=== PATIENT | female | born 1950 | race Caucasian/White ===

== ENCOUNTER 2016-08-07 21:57 | Emergency (ER) | payer OTHER, BC ==
[~2016-08-07] VITALS: Ht 165.1 cm; Wt 108.4 kg
[~2016-08-07 21:57] MED LIST: ACETCHW7 PO; ALBUAER2 INH; B-CO1CAP3 PO; BNC/20125 PO; DILT120C68 PO; GEMF600T3 PO; GLC/500 PO; GLIP2.5T11 PO; HMLI SC; INSDGI SC; LEVOPOW36; MAGN400T6 PO; MULT-506 PO; PRAV20TA PO; PRED1SUS3 OPL; [UNRECOGNIZED DRUG - CODE]
[2016-08-07 22:01] VITALS: TEMP 36.6; Ht 165.1 cm; Wt 108.4 kg
[2016-08-07 23:25] LABS: MANUAL MICROSCOPIC REQUIRED? YES; URINE APPEARANCE TURBID (CLEAR); URINE BILIRUBIN NEG (NEG); URINE COLOR RED; URINE NITRITE NEG (NEG); URINE SPECIFIC GRAVITY 1.025 (1.000-1.030); UROBILINOGEN NEG (NEG)
[2016-08-07 23:27] LABS: REVIEW REQ? NO
[2016-08-07 23:38] LABS: URINE BACTERIA NEG (NEG); URINE RBC >30 /hpf (0-4); URINE WBC >30 /hpf (0-5); ZZUR CULT IF INDIC CLEAN CATCH YES
[2016-08-07] MEDS ORDERED: METF-384 PO (23:55)
[2016-08-07] MEDS ORDERED: LEVO150T9 PO (23:55)
[2016-08-07] MEDS ORDERED: [UNRECOGNIZED DRUG - CODE] PO (23:55)
[2016-08-07] MEDS ORDERED: INSDGI SQ (23:55)
[2016-08-07] MEDS ORDERED: GLIP10TA10 PO (23:55)
[2016-08-07] MEDS ORDERED: DILT180C70 PO (23:57)
[2016-08-07] MEDS ORDERED: PRAV80TA2 PO (23:57)
[2016-08-07] MEDS ORDERED: NVLG SQ (23:58)
[2016-08-07] MEDS ORDERED: INSDGI SC (23:59)
[2016-08-08] MEDS ORDERED: PHENAZOPYRIDINE HOME PACK 200 MG VIAL PO ONE
[2016-08-08] MEDS ORDERED: CEFTRIAXONE SOD 350MG/ML 1 GM VIAL IM ONE
[2016-08-08] MEDS ORDERED: TURM500T PO (00:01)
[2016-08-08] MEDS ORDERED: CINN1CAP2 PO (00:01)
[2016-08-08] MEDS ORDERED: CHOL1000 PO (00:03)
[2016-08-08] MEDS ORDERED: CHRO1CAP3 PO (00:03)
[2016-08-08] MEDS ORDERED: GLUC1CAP35 PO (00:03)
[2016-08-08] MEDS ORDERED: GUAI1TAB69 PO (00:03)
[2016-08-08] MEDS ORDERED: CEFD300C2 PO (00:05)
[2016-08-08 00:11] VITALS: BP 147/104; PULSE 110; O2SAT 93
--- NOTE | 2016-08-10 11:32 | EMERGENCY ROOM VISIT NOTE ---
ED Visit Note First contact with patient: 22:40 CHIEF COMPLAINT: Frequent and painful urination HISTORY OF PRESENT ILLNESS: This 65-year-old female presents to the emergency department complaining of increased frequency of urination, burning pain with urination, and a feeling of incomplete voiding for the past 2 hours. She did notice blood in her urine. The patient passes very small volumes of urine with each episode of voiding. The patient does not have abdominal pain. They deny back pain, fever, or vaginal discharge. The patient has had frequent urinary tract infections in the past. Patient feels they are not at risk for STIs. REVIEW OF SYSTEMS: A 6 system review of systems was completed with positives and pertinent negatives listed in the HPI. ALLERGIES: See EMR MEDICATIONS: See EMR PMH: History of UTIs in past SOCIAL HISTORY: Lives locally PHYSICAL EXAM: Vital Signs: Reviewed Nurse's notes, vital signs stable. GENERAL : White female, in no acute distress, they do not appear toxic, well-developed , well-nourished. ABDOMEN: Positive bowel sounds x 4. The abdomen is soft, mildly tender in the suprapubic area, but no masses or organs are felt. There is no CVA tenderness. The skin is clear. NEURO: Alert and oriented to person place and time. EMERGENCY DEPARTMENT COURSE: I examined the patient. She does have UTI symptoms. Urine was collected and is with hematuria. The patient does not have symptoms that suggest a stone or pyelonephritis. Her culture is pending, however because she has had UTIs in the past I will give her a shot of Rocephin here and a course of Omnicef. The patient is to follow with her primary care physician for further care and management. She was otherwise invited back to the ER with any new, worsening, or concerning symptoms. Current/Historical Medications Scheduled B-Complex Vitamins (B Complex), 1 CAP PO DAILY Cefdinir (Omnicef), 300 MG PO Q12H Cholecalciferol (Vitamin D3), 1 TAB PO DAILY Chromium Picolinate (Chromium Picolinate), 500 MCG PO DAILY Cinnamon (Cinnamon), 500 MG PO DAILY Diltiazem Hcl (Diltiazem Hcl), 180 MG PO DAILY Gemfibrozil (Lopid), 600 MG PO BID Glipizide (Glipizide), 10 MG PO BID Hchsiuehzfj-Mantrwzyfqi-Uqa C- (Glucosamine Chondroitin), 1 CAP PO DAILY Insulin Aspart (Novolog), SQ ACHS Insulin Glargine (Lantus), 60 UNITS SQ QAM Insulin Glargine (Lantus), 40 SC QPM Levothyroxine Sodium (Levothyroxine Sodium), 150 MCG PO DAILY Magnesium Oxide (Mag-Ox), 400 MG PO DAILY Metformin Hcl (Glucophage), 1,000 MG PO BID Multivitamin (Multivitamin), 1 TAB PO DAILY Olmesartan/Hctz (Benicar Hct 40/12.5), 1 TAB PO DAILY Pravastatin Sodium (Pravastatin Sodium), 80 MG PO DAILY Turmeric (Curcuma Longa) (Turmeric), 500 MGPE PO DAILY Scheduled PRN Guaifenesin (Mucinex Maximum Strength), 1 TAB PO BID PRN for Nasal Congestion Allergies Coded Allergies: Sulfamethoxazole w/Trimethoprim (Verified Allergy, Intermediate, HIVES, 08/07/16) Ciprofloxacin (Verified Allergy, Unknown, RASH, 08/07/16) Penicillins (Verified Allergy, Unknown, UNSURE, 08/07/16) Vital Signs Date Time Temp Pulse Resp B/P Pulse Ox O2 Delivery O2 Flow Rate FiO2 08/08/16 00:11 110 20 147/104 93 Room Air 08/07/16 22:01 36.6 103 20 204/85 94 Room Air Laboratory Results Test 08/07/16 22:15 08/07/16 23:50 Urine Color RED Urine Appearance TURBID (CLEAR) Urine pH 6.0 (4.5-7.5) Urine Specific [place] 1.025 (1.000-1.030) Urine Protein 3+ (NEG) Urine Glucose (UA) TRACE (NEG) Urine Ketones NEG (NEG) Urine Occult Blood 3+ (NEG) Urine Nitrite NEG (NEG) Urine Bilirubin NEG (NEG) Urine Urobilinogen NEG (NEG) Urine Leukocyte Esterase NEG (NEG) Urine RBC >30 /hpf (0-4) Urine WBC >30 /hpf (0-5) Urine Epithelial Cells 0-5 /lpf (0-5) Urine Bacteria NEG (NEG) Bedside Glucose 291 mg/dl (70-90) Date/Time Source Procedure Growth Status 08/07/16 22:15 Urine , Clean Catch Urine Culture - Final Escherichia Coli Complete Medications Administered Medications (Trade) Dose Ordered Sig/Coretta Route Start Time Stop Time Status Last Admin Dose Admin Ceftriaxone Sodium (Rocephin Im) 1,000 mg NOW ONCE IM 08/08/16 00:00 08/08/16 00:01 DC 08/08/16 00:01 1,000 MG Departure Information Impression Primary Impression: Hemorrhagic cystitis Dispostion Home / Self-Care Condition GOOD Prescriptions Cefdinir (OMNICEF) 300 Mg Cap 300 MG PO Q12H for 10 Days, #20 CAP Prov: Paxton Yap PA-C 08/08/16 Forms HOME CARE DOCUMENTATION FORM, IMPORTANT VISIT INFORMATION Patient Instructions A Signature Page, My [facility] Additional Instructions You were seen and evaluated today on an emergency basis only. This is not a substitute for, or an effort to provide, complete comprehensive medical care. It is not possible to recognize and treat all injuries or illnesses in a single emergency department visit. For this reason it is recommended that you followup with your primary care physician's week for ongoing care and evaluation. Take Omnicef 300 mg twice daily for the next 10 days. Take Pyridium 200 mg 3 times a day as needed. This medication will change the color of your urine orange/red. This is normal. You are welcome to return to the emergency department anytime with new, worsening, or concerning symptoms.
== END 2016-08-08 00:23 | disposition home or self-care (01) ==
LOC: C.EDB 21:58 → C.EDA 08-08 00:23
DX: N30.90 Cystitis, unspecified without hematuria (principal); Z87.440 Personal history of urinary (tract) infections; Z79.4 Long term (current) use of insulin; Z79.84 Long term (current) use of oral hypoglycemic drugs; Z88.0 Allergy status to penicillin; Z88.2 Allergy status to sulfonamides

== ENCOUNTER → 2016-08-24 | Outpatient (CLI) | payer OTHER, BC ==
[~2016-08-24] MED LIST changes: -ACETCHW7 PO; -ALBUAER2 INH; -BNC/20125 PO; +CHOL1000 PO; +CHRO1CAP3 PO; +CINN1CAP2 PO; -DILT120C68 PO; +DILT180C70 PO; -GLC/500 PO; +GLIP10TA10 PO; -GLIP2.5T11 PO; +GLUC1CAP35 PO; +GUAI1TAB69 PO; -HMLI SC; +INSDGI SQ; +LEVO150T9 PO; -LEVOPOW36; +METF-384 PO; +NVLG SQ; -PRAV20TA PO; +PRAV80TA2 PO; -PRED1SUS3 OPL; +TURM500T PO; -[UNRECOGNIZED DRUG - CODE]; +[UNRECOGNIZED DRUG - CODE] PO
[2016-08-24 13:15] LABS: URINE APPEARANCE CLEAR (CLEAR); URINE BILIRUBIN NEG (NEG); URINE COLOR YELLOW; URINE NITRITE NEG (NEG); URINE SPECIFIC GRAVITY 1.023 (1.000-1.030); UROBILINOGEN NEG (NEG); ZZUR CULT IF INDIC CLEAN CATCH NO
[2016-08-24 13:23] LABS: MANUAL MICROSCOPIC REQUIRED? NO; REVIEW REQ? NO
== END | disposition home or self-care (01) ==
LOC: C.LABSPEC 10:56
PROVIDERS: ATTEND Internal Medicine
DX: N39.0 Urinary tract infection, site not specified (principal)

== ENCOUNTER → 2016-09-23 | Outpatient (CLI) | payer OTHER, BC ==
[2016-09-23 15:45] LABS: URINE APPEARANCE CLEAR (CLEAR); URINE BILIRUBIN NEG (NEG); URINE COLOR YELLOW; URINE NITRITE NEG (NEG); URINE SPECIFIC GRAVITY 1.025 (1.000-1.030); UROBILINOGEN NEG (NEG)
[2016-09-23 15:46] LABS: MANUAL MICROSCOPIC REQUIRED? NO; REVIEW REQ? NO
== END | disposition home or self-care (01) ==
LOC: C.LAB1850 14:29
PROVIDERS: ATTEND Internal Medicine
DX: N39.0 Urinary tract infection, site not specified (principal)

== ENCOUNTER → 2016-11-19 | Outpatient (CLI) | payer OTHER, BC | END | disposition home or self-care (01) | LOC: C.LABSPEC 17:37 | PROVIDERS: ATTEND Obstetrics & Gynecology | DX: L28.0 Lichen simplex chronicus (principal) ==

== ENCOUNTER → 2017-05-06 | Outpatient (CLI) | payer OTHER, BC ==
--- NOTE | 2017-05-06 15:48 | DIAGNOSTIC IMAGING REPORT ---
RIBS BILATERAL WITH PA CHEST CLINICAL HISTORY: 66 years-old Female presenting with RIB PAIN. TECHNIQUE: Frontal and oblique views of the bilateral ribs as well as PA view of the chest were obtained. COMPARISON: Chest x-ray from 05/15/2011. FINDINGS: No displaced rib fracture. Cardiac mediastinal silhouette unchanged. Lungs and pleural spaces clear. Upper abdomen normal. IMPRESSION: 1. No displaced rib fracture. 2. No acute cardiopulmonary disease. Electronically signed by: Cristian Nichols M.D. 05/06/2017 3:47 PM Dictated Date/Time: 05/06/2017 3:45 PM
--- NOTE | 2017-05-06 15:49 | DIAGNOSTIC IMAGING REPORT ---
THORACIC SPINE 3 VIEWS ROUTINE CLINICAL HISTORY: 66 years-old Female presenting with RIB PAIN. TECHNIQUE: 3 views of the thoracic spine were obtained. COMPARISON: None. FINDINGS: Normal thoracic kyphosis. Vertebral bodies maintain normal height and alignment. Intervertebral disc spaces maintained. Limited visualization of the upper thoracic vertebral bodies. Degenerative changes noted at C6-7. No gross evidence of osseous neural foraminal narrowing in the thoracic spine. No radiographic evidence of fracture or subluxation. IMPRESSION: Normal thoracic spine. Focal degenerative change at C6-7. Electronically signed by: Cristian Nichols M.D. 05/06/2017 3:48 PM Dictated Date/Time: 05/06/2017 3:47 PM
== END | disposition home or self-care (01) ==
LOC: C.RAD 14:32
PROVIDERS: ATTEND Internal Medicine
DX: C50.919 Malignant neoplasm of unspecified site of unspecified female breast (principal); R07.89 Other chest pain

== ENCOUNTER → 2017-08-12 | Outpatient (CLI) | payer OTHER, BC ==
[2017-08-12 09:35] LABS: BASO % 1.2 %; BASO ABS # 0.09 K/uL (0-0.2); EOS % 7.3 %; EOS ABS # 0.54 K/uL (0-0.5); HEMATOCRIT 41.2 % (37-47); HEMOGLOBIN 14.1 g/dL (12.0-16.0); IG# 0.02 K/uL (0.00-0.02); LYMPH % 21.1 %; LYMPH ABS # 1.56 K/uL (1.2-3.4); MEAN CELL VOLUME 85.7 fL (80-100); MEAN CORPUSCULAR HEMOGLOBIN 29.3 pg (25-34); MEAN CORPUSCULAR HGB CONC 34.2 g/dl (32-36); MEAN PLATELET VOLUME 10.2 fL (7.4-10.4); MONO % 6.6 %; MONO ABS # 0.49 K/uL (0.11-0.59); NEUT % 63.5 %; PLATELET COUNT 401 K/uL (130-400); RED CELL DISTRIBUTION WIDTH CV 13.6 % (11.5-14.5); RED CELL DISTRIBUTION WIDTH SD 42.4 fL (36.4-46.3)
[2017-08-12 10:04] LABS: HEMOGLOBIN A1C 9.7 % (4.5-5.6)
[2017-08-12 10:09] LABS: ALT/SGPT 46 U/L (12-78); AST/SGOT 20 U/L (15-37); BLOOD UREA NITROGEN 16 mg/dl (7-18); CALCIUM 9.5 mg/dl (8.5-10.1); CARBON DIOXIDE 28 mmol/L (21-32); CREATININE 0.69 mg/dl (0.60-1.20); GLUCOSE 197 mg/dl (70-99); POTASSIUM 3.4 mmol/L (3.5-5.1); SODIUM 135 mmol/L (136-145)
[2017-08-12 10:20] LABS: CHOLESTEROL 243 mg/dl (0-200)
== END | disposition home or self-care (01) ==
LOC: C.LAB1850 08:26
PROVIDERS: ATTEND Physician Assistant
DX: E11.9 Type 2 diabetes mellitus without complications (principal); I10 Essential (primary) hypertension; E03.9 Hypothyroidism, unspecified

== ENCOUNTER → 2017-09-29 | Outpatient (CLI) | payer OTHER, BC ==
--- NOTE | 2017-09-30 07:57 | MAMMOGRAPHY REPORT ---
BILATERAL DIGITAL SCREENING MAMMOGRAM TOMOSYNTHESIS WITH CAD: 09/29/2017 CLINICAL HISTORY: Asymptomatic. Personal history of breast cancer. TECHNIQUE: Breast tomosynthesis in addition to standard 2D mammography was performed. Current study was also evaluated with a Computer Aided Detection (CAD) system. COMPARISON: Comparison is made to exams dated: 12/22/2015 mammogram, 05/03/2014 mammogram, 10/01/2012 m ammogram, 06/10/2011 mammogram, 06/10/2011 mammogram - [facility], and 04/20/2009. BREAST COMPOSITION: There are scattered areas of fibroglandular density in both breasts. FINDINGS: There is expected architectural distortion and surgical clips in the upper outer quadrant o f the left breast and left axilla, at the site of prior surgery. There are scattered benign-appearin g calcifications stable in the left greater than right breast. No new suspicious mass, architectural distortion or cluster of suspicious microcalcifications is seen. IMPRESSION: ACR BI-RADS CATEGORY 1: NEGATIVE There is no mammographic evidence of malignancy. A 1 year screening mammogram is recommended. The pa tient will receive written notification of the results. Approximately 10% of breast cancers are not detected with mammography. A negative mammographic report should not delay biopsy if a clinically suggestive mass is present. Lizeth Krause M.D. ay/:09/29/2017 17:54:29 Watch Supervisor: Frances HUA)(Antonio), [facility] letter sent: Normal 1/2 BI-RADS Code: ACR BI-RADS Category 1: Negative
== END | disposition home or self-care (01) ==
LOC: C.MAMM 12:21
PROVIDERS: ATTEND Internal Medicine
DX: Z12.31 Encounter for screening mammogram for malignant neoplasm of breast (principal); Z85.3 Personal history of malignant neoplasm of breast

== ENCOUNTER → 2017-10-07 | Outpatient (CLI) | payer OTHER, BC | END | disposition home or self-care (01) | LOC: C.LAB1850 11:26 | PROVIDERS: ATTEND Internal Medicine | DX: N39.0 Urinary tract infection, site not specified (principal) ==

== ENCOUNTER → 2017-11-18 | Outpatient (CLI) | payer OTHER, BC ==
[2017-11-18 14:36] LABS: BASO % 0.6 %; BASO ABS # 0.05 K/uL (0-0.2); EOS % 3.9 %; EOS ABS # 0.33 K/uL (0-0.5); HEMATOCRIT 41.1 % (37-47); HEMOGLOBIN 14.1 g/dL (12.0-16.0); IG# 0.02 K/uL (0.00-0.02); LYMPH % 18.1 %; LYMPH ABS # 1.53 K/uL (1.2-3.4); MEAN CELL VOLUME 84.7 fL (80-100); MEAN CORPUSCULAR HEMOGLOBIN 29.1 pg (25-34); MEAN CORPUSCULAR HGB CONC 34.3 g/dl (32-36); MEAN PLATELET VOLUME 9.8 fL (7.4-10.4); MONO % 7.1 %; NEUT % 70.1 %; NEUT ABS # 5.94 K/uL (1.4-6.5); PLATELET COUNT 431 K/uL (130-400); RED CELL DISTRIBUTION WIDTH CV 13.6 % (11.5-14.5); RED CELL DISTRIBUTION WIDTH SD 41.7 fL (36.4-46.3); WHITE BLOOD COUNT 8.47 K/uL (4.8-10.8)
[2017-11-18 15:06] LABS: ALT/SGPT 51 U/L (12-78); AST/SGOT 25 U/L (15-37); BLOOD UREA NITROGEN 26 mg/dl (7-18); CALCIUM 9.3 mg/dl (8.5-10.1); CARBON DIOXIDE 26 mmol/L (21-32); GLUCOSE 209 mg/dl (70-99); POTASSIUM 3.5 mmol/L (3.5-5.1); SODIUM 136 mmol/L (136-145)
[2017-11-19 06:38] LABS: HEMOGLOBIN A1C 9.4 % (4.5-5.6)
== END | disposition home or self-care (01) ==
LOC: C.LAB1850 12:02
PROVIDERS: ATTEND Internal Medicine
DX: E78.1 Pure hyperglyceridemia (principal)

== ENCOUNTER → 2018-02-24 | Outpatient (CLI) | payer OTHER, BC ==
[2018-02-25 06:09] LABS: HEMOGLOBIN A1C 8.8 % (4.5-5.6)
== END | disposition home or self-care (01) ==
LOC: C.LAB1850 15:36
PROVIDERS: ATTEND Internal Medicine
DX: E11.9 Type 2 diabetes mellitus without complications (principal); E78.1 Pure hyperglyceridemia

== ENCOUNTER 2023-12-24 18:18 | Inpatient (IN) ==
--- NOTE | 2023-12-24 18:28 | ED Triage Note ---
Date of Service December 24, 2023 Provider in Triage Author: Paxton Yap A History of Present Illness This patient was briefly evaluated while in triage. An abbreviated physical exam was performed. This patient is a 73-year-old Female who presents to the ED for evaluation of low heart rate. Pt reports it was 40 at home, and she called here PCP but they were out of town. No CP/sob. Not dizzy. Physical Exam Limited Triage Exam: VITALS: Vitals are noted on the nurse's note and reviewed by myself. Vital signs stable. GENERAL: Well-developed, well-nourished, white female, who is in no acute distress and resting comfortably. Patient is cooperative with the examination. HEART: Paulo rate LUNGS: Clear to auscultation bilaterally without wheezes, rales or rhonchi. No retractions or accessory muscle use. NEURO: Patient was alert and oriented to person place and time. CN II through XII grossly intact. Initial orders for labs and / or imaging were placed and patient was placed in the waiting area until a bed is available. Please see further documentation for the full ED course. MDM / Impression Impression Impression: Third degree heart block
[2023-12-24 19:38] LABS: Basophils # (auto) 0.09 K/uL (0.00-0.20); Basophils % (auto) 0.8 %; Eosinophils # (auto) 0.27 K/uL (0.00-0.50); Eosinophils % (auto) 2.5 %; Hemoglobin 11.7 g/dl (12.0-16.0); Immature Granulocytes # (auto) 0.03 K/uL (0.01-0.20); Immature Granulocytes % (auto) 0.3 %; Lymphocytes # (auto) 1.18 K/uL (1.20-3.40); Lymphocytes % (auto) 10.9 %; Mean Corpuscular Hemoglobin 27.5 pg (25.0-34.0); Mean Corpuscular Hgb Conc 32.5 g/dL (32.0-36.0); Mean Corpuscular Volume 84.7 fL (80.0-100.0); Mean Platelet Volume 10.6 fL (9.4-12.4); Monocytes # (auto) 0.77 K/uL (0.11-0.59); Monocytes % (auto) 7.1 %; Neutrophils # (auto) 8.47 K/uL (1.40-6.50); Neutrophils % (auto) 78.4 %; Platelet Count 329 K/uL (130-400); RDW Coefficient of Variation 14.6 % (11.5-14.5); RDW Standard Deviation 44.7 fL (36.4-46.3); Red Blood Count 4.25 M/uL (4.20-5.40); White Blood Count 10.81 K/ul (4.8-10.8)
[2023-12-24 19:50] LABS: Albumin Globulin Ratio 1.1 (0.9-2); Albumin Level 3.6 gm/dl (3.4-5.0); BUN Creatinine Ratio 35.8 (10-20); Bilirubin,Total 0.3 mg/dl (0.2-1.0); Calcium 9.4 mg/dl (8.6-10.3); Est GFR (Non-African American) 34.5 ml/min; Globulin 3.2 gm/dl (2.5-4.0); Total Protein 6.8 gm/dl (6.0-8.3)
[2023-12-24 19:56] LABS: Troponin I High Sensitivity 6.6 pg/ml (0-14)
[2023-12-24 19:59] LABS: Partial Thromboplastin Time 26 Seconds (21-31); Prothrombin Time 10.8 Seconds (9.0-12.0)
--- NOTE | 2023-12-24 20:38 | History & Physical Report ---
Date of Service December 24, 2023 Assessment & Plan (1) Third degree heart block: Plan: 73yo female presenting with bradycardia, some SOB and palpitations. Found to be in complete heart block with HR in the 40's. Blood pressure is maintained. Patient is mentating well with minimal symptoms. No clinical evidence of CHF. She does have LUIS FELIPE, possible poor perfusion. Electrolytes are within normal limits. K=5 which is within normal range but higher than prior values. She is on Spironolactone and K supplement. TSH is WNL Lyme screen is Negative -Admit to medical with telemetry -Check 2D echo. Patient with 3/6 ERWIN, possibly aortic sclerosis. No prior echo -Cardiology consultation appreciated -Will keep patient NPO for overnight in the event of pacer placement -Hold Diltiazem -Should patient decompensate or become hypotensive will initiate Dopamine (2) Type 2 diabetes mellitus with hyperglycemia, with long-term current use of insulin: Plan: Patient with DM. She is on metformin as well as 95u of Lantus qAM. Poorly controlled with last NalY7D=14.6 on 09/23/23. Patient will be NPO for now for possible pacer placement tomorrow -Hold Metformin -Lantus 25u BID -ISS -Goal blood sugar 110 - 140 -Check HgbA1C (3) LUIS FELIPE (acute kidney injury): Plan: Elevation of BUN and Cr from baseline (Cr=1.48 from 0.99). Possibly secondary to poor perfusion in setting of CHB and bradycardia. Patient does appear slightly dry on exam. -LR at 100mL/hr x 1L -Repeat chemistry in AM -Avoid nephrotoxic agent - Hold HCTZ, Ibuprofen, Potassium and Spironolactone -Renal dosing where needed -Close outpatient laboratory mon[place]ong if patient is to continue on Spironolactone and KCl Plan Hypothyroidism - chronic. stable -Continue Synthroid 150mcg po daily Hyperlipidemia - Chronic. Stable -Continue Crestor 40mg po daily POA - Friend Elif Nichols [phone] History of Present Illness Chief Complaint: Bradycardia Primary Care Provider: Lorenza Nieves MD Tate Trejo is a pleasant 73yo female with history of DM, HTN, HLP, GERD, Hypothyroidism, CKD presenting with bradycardia and irregular heart beat. Patient routinely measures her vital signs at home with use of an automated blood pressure cuff. She records these values in her book. Around early October () she began getting some readings that indicated an irregular rhythm which were occasional. Over the last several days (since December 19) she has had fairly consistent irregular rhythms as well as bradycardia - heart rates ranging 40's - 50's. Patient is mildly symptomatic. She experiences occasional palpitations as well as shortness of breath and fatigue. She denies chest pain, dizziness or syncope . Denies edema, orthopnea or weight gain. No confusion. Patient was recently ill with a three week URI. She was taking Benadryl and Mucinex. She did not get any viral testing for this illness. She reports that her symptoms are largely resolved with exception of continued nasal congestion and some post-nasal drip. She takes Fluconazole PRN for yeast infections and took a tablet yesterday. She denies exposure to ticks or tick bites. In the ER she was found to be in complete heart block. Allergies Allergy/AdvReac Type Severity Reaction Status Date / Time ciprofloxacin Allergy Intermediate RASH Verified 12/24/23 20:55 sulfamethoxazole Allergy Intermediate HIVES Verified 12/24/23 20:55 trimethoprim Allergy Intermediate HIVES Verified 12/24/23 20:55 feathers Allergy Mild Sneezing Verified 12/24/23 20:55 amlodipine Allergy Unknown CAN'T Verified 12/24/23 20:55 REMEMBER atorvastatin [From Lipitor] Allergy Unknown CAN'T Verified 12/24/23 20:55 REMEMBER fenofibrate Allergy Unknown CAN'T Verified 12/24/23 20:55 REMEMBER losartan Allergy Unknown CAN'T Verified 12/24/23 20:55 REMEMBER Penicillins Allergy Unknown UNSURE Verified 12/24/23 20:55 Rabbit Allergy Unknown Unknown Verified 12/24/23 20:55 carisoprodol AdvReac Unknown CAN'T Verified 12/24/23 20:55 REMEMBER TOBACCO Allergy Unknown Unknown Uncoded 12/24/23 20:55 Home Medications Medication Instructions Recorded Confirmed Type cholecalciferol (vitamin D3) 25 1,000 units PO DAILY 09/10/18 12/24/23 History mcg (1,000 unit) capsule chromium picolinate 400 mcg tablet 500 mcg PO DAILY 09/10/18 12/24/23 History cinnamon bark 500 mg capsule 500 mg PO DAILY 09/10/18 12/24/23 History (Cinnamon) magnesium oxide 400 mg PO DAILY 09/10/18 12/24/23 History multivitamin 1 tab PO DAILY 09/10/18 12/24/23 History vitamin B complex 1 tab PO HS 09/10/18 12/24/23 History blood sugar diagnostic (OneTouch #300 ea 01/27/23 12/08/23 Rx Ultra Test strips) insulin syringe-needle U-100 0.5 #300 ea 01/30/23 12/08/23 Rx mL 30 gauge x 1/2" rosuvastatin 40 mg tablet 40 mg PO DAILY #90 tabs 03/13/23 12/24/23 Rx albuterol sulfate 90 mcg/actuation 2 puff inhalation Q4H PRN 07/15/23 12/24/23 Rx aerosol inhaler shortness of breath or wheezing #8.5 grams metformin 500 mg tablet,extended 500 mg PO BID #60 tabs 10/10/23 12/24/23 Rx release 24 hr hydrochlorothiazide 12.5 mg capsule 12.5 mg PO QAM 12/08/23 12/24/23 History spironolactone 25 mg tablet 25 mg PO DAILY #90 tabs 12/08/23 12/24/23 Rx acetaminophen 500 mg tablet 500 mg PO Q6H PRN PAIN/FEVER 12/24/23 12/24/23 History (Tylenol Extra Strength) ascorbic acid (vitamin C) 500 mg 500 mg PO DAILY 12/24/23 12/24/23 History tablet (Vitamin C) aspirin 81 mg tablet,delayed 81 mg PO HS 12/24/23 12/24/23 History release diltiazem HCl 240 mg 240 mg PO HS 12/24/23 12/24/23 History capsule,extended release 24 hr diphenhydramine HCl 25 mg capsule 25 mg PO DIRECTED PRN Congestion 12/24/23 12/24/23 History (Benadryl) fluconazole 100 mg tablet 0 mg PO DIRECTED PRN NEEDED 12/24/23 12/24/23 History PER PT glucosamine sulf dipot 1 cap PO DAILY 12/24/23 12/24/23 History chlr,msm,chond 550 mg-C 30 mg-prvaeen 1 mg capsule (Glucosamine Chondroitin) guaifenesin 600 mg tablet, 600 mg PO Q12H PRN Congestion 12/24/23 12/24/23 History extended release 12 hr (Mucinex) ibuprofen 200 mg tablet 400 mg PO Q6H PRN PAIN/FEVER 12/24/23 12/24/23 History insulin glargine 100 unit/mL 95 unit subcut QAM 12/24/23 12/24/23 History subcutaneous solution (Lantus U-100 Insulin) levothyroxine 150 mcg tablet 150 mcg PO DAILY #90 tabs 12/24/23 12/24/23 Rx omega-3 fatty acids 1,000 mg 1,000 mg PO DAILY 12/24/23 12/24/23 History capsule orphenadrine citrate 100 mg 100 mg PO BID PRN NEEDED 12/24/23 12/24/23 History tablet,extended release potassium chloride 20 mEq 20 meq PO HS 12/24/23 12/24/23 History tablet,extended release turmeric 400 mg capsule 400 mg PO DAILY 12/24/23 12/24/23 History Past Med/Surg History Problem List (Updated 12/24/23 @ 23:41 by Mima Li DO) LUIS FELIPE (acute kidney injury) Third degree heart block (Acute) Dysuria Bilateral carotid artery stenosis History of breast cancer 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 GFR 30-59 Type 2 diabetes mellitus with retinopathy Type 2 diabetes mellitus with obesity Fatigue Rotator cuff arthropathy of right shoulder Right shoulder pain CKD (chronic kidney disease) stage 3, GFR 30-59 ml/min Lumbar facet joint syndrome (Chronic) Insulin dependent diabetes mellitus (Chronic) Obesity (Chronic) Lichen simplex chronicus (Chronic) Polyneuropathy (Chronic) History of external beam radiation therapy (Chronic) Herpes simplex (Chronic) Chronic low back pain (Chronic) GERD (gastroesophageal reflux disease) (Chronic) Hypothyroid (Chronic) High cholesterol (Chronic) HTN (hypertension), benign (Chronic) Hemorrhagic cystitis (Acute) Type 2 diabetes mellitus with hyperglycemia, with long-term current use of insulin Medical History Breast cancer Surgical History Status post total abdominal hysterectomy Family History Mother HTN (hypertension), benign Stroke Uterine cancer Father Heart disease Aunt Breast cancer Denies family history of Ovarian cancer Prostate cancer Myocardial infarction Colorectal cancer Social History Smoking Status: Never smoker Do You Dip or Chew Tobacco: No; Hx Alcohol Use: No Hx Substance Use: No Preferred Language: Bulgarian Communication Ability: Effective Visual Impairment: No Limitations Hearing Ability: Normal Campground Cleaning Attendant Required: No Beliefs That Will Affect Care: None marital status: Single Current Living Situation: Alone current occupational status: retired current occupation: Retired bookeeper Feels Safe at Home: Yes Do you think of yourself as: straight/heterosexual Review of Systems Review of Systems: All systems reviewed & are unremarkable except as noted in HPI & below Physical Exam Physical Exam: General: patient resting comfortably, NAD, non-toxic in appearance, AA&O x 4 Skin: warm, dry, intact, no rashes or lesions HEENT: NC/AT, PERRL, EOMI, anicteric sclera, conjunctiva without injection, external ear normal to inspection and nontender, nares patent, moist mucus membranes, dentition intact, no oropharyngeal lesions, neck supple, trachea midline, no LAD, no thyromegaly, no JVD Heart: +S1/S2, irregularly irregular, bradycardic, 3/6 ERWIN at right 2nd ICS with radiation across precordium Lungs: equal air entry bilaterally, no rales/rhonchi/wheezes Abd: +BS, soft, NT/ND, no masses/organomegaly/ascites Ext: warm, 2+ pulses in UE/LE bilaterally, no clubbing/cyanosis or edema Neuro: nonfocal, patient AA&O x 4, speech intact, no facial droop, moving all extremities on command with equal strength 5/5 Results & Data Results & Data Vital Signs (Past 12 Hours) Vital Signs Temp Pulse Pulse Resp BP BP Pulse Ox 12/24/23 19:56 42 L 12/24/23 19:47 50 L 18 159/74 H 96 12/24/23 18:22 36.8 C 41 L 18 178/64 H 97 O2 Del Method 12/24/23 19:56 12/24/23 19:47 Room Air 12/24/23 18:22 Room Air Laboratory Results Laboratory Results WBC 10.81 K/ul (4.8-10.8) H 12/24/23 18:52 RBC 4.25 M/uL (4.20-5.40) 12/24/23 18:52 Hgb 11.7 g/dl (12.0-16.0) L 12/24/23 18:52 Hct 36.0 % (37.0-47.0) L 12/24/23 18:52 MCV 84.7 fL (80.0-100.0) 12/24/23 18:52 MCH 27.5 pg (25.0-34.0) 12/24/23 18:52 MCHC 32.5 g/dL (32.0-36.0) 12/24/23 18:52 RDW Std Deviation 44.7 fL (36.4-46.3) 12/24/23 18:52 RDW Coeff of Shavon 14.6 % (11.5-14.5) H 12/24/23 18:52 Plt Count 329 K/uL (130-400) 12/24/23 18:52 MPV 10.6 fL (9.4-12.4) 12/24/23 18:52 Immature Gran % (Auto) 0.3 % 12/24/23 18:52 Neut % (Auto) 78.4 % 12/24/23 18:52 Lymph % (Auto) 10.9 % 12/24/23 18:52 [place] % (Auto) 7.1 % 12/24/23 18:52 Eos % (Auto) 2.5 % 12/24/23 18:52 Baso % (Auto) 0.8 % 12/24/23 18:52 Neut # (Auto) 8.47 K/uL (1.40-6.50) H 12/24/23 18:52 Lymph # (Auto) 1.18 K/uL (1.20-3.40) L 12/24/23 18:52 [place] # (Auto) 0.77 K/uL (0.11-0.59) H 12/24/23 18:52 Eos # (Auto) 0.27 K/uL (0.00-0.50) 12/24/23 18:52 Baso # (Auto) 0.09 K/uL (0.00-0.20) 12/24/23 18:52 Immature Gran # (Auto) 0.03 K/uL (0.01-0.20) 12/24/23 18:52 PT 10.8 Seconds (9.0-12.0) 12/24/23 18:52 INR 1.0 (0.9-1.1) 12/24/23 18:52 APTT 26 Seconds (21-31) 12/24/23 18:52 PTT Ratio 1.0 12/24/23 18:52 Sodium 133 mmol/L (136-145) L 12/24/23 18:52 Potassium 5.0 mmol/L (3.5-5.1) 12/24/23 18:52 Chloride 105 mmol/L (98-107) 12/24/23 18:52 Carbon Dioxide 19 mmol/L (21-32) L 12/24/23 18:52 Anion Gap 9 (3-11) 12/24/23 18:52 BUN 53 mg/dl (6-23) H 12/24/23 18:52 Creatinine 1.48 mg/dl (0.6-1.2) H 12/24/23 18:52 Est Cr Clr Drug Dosing 39.0 ml/min 12/24/23 18:52 Est GFR ( Amer) 40.0 ml/min 12/24/23 18:52 Est GFR (Non-Af Amer) 34.5 ml/min 12/24/23 18:52 BUN/Creatinine Ratio 35.8 (10-20) H 12/24/23 18:52 Glucose 184 mg/dl (70-99(Fasting)) H 12/24/23 18:52 Calcium 9.4 mg/dl (8.6-10.3) 12/24/23 18:52 Phosphorus 4.5 mg/dl (2.5-4.9) 12/24/23 18:52 Magnesium 2.5 mg/dl (1.7-2.4) H 12/24/23 18:52 Total Bilirubin 0.3 mg/dl (0.2-1.0) 12/24/23 18:52 AST 13 U/L (13-39) 12/24/23 18:52 ALT 14 U/L (7-52) 12/24/23 18:52 Alkaline Phosphatase 66 U/L (34-104) 12/24/23 18:52 Troponin I High Sens 6.6 pg/ml (0-14) 12/24/23 18:52 Total Protein 6.8 gm/dl (6.0-8.3) 12/24/23 18:52 Albumin 3.6 gm/dl (3.4-5.0) 12/24/23 18:52 Globulin 3.2 gm/dl (2.5-4.0) 12/24/23 18:52 Albumin/Globulin Ratio 1.1 (0.9-2) 12/24/23 18:52 Lipase 17 U/L (11-82) 12/24/23 18:52 TSH 1.370 uIu/ml (0.300-4.500) 12/24/23 18:52 Urine Color Yellow 12/24/23 20:35 Urine Appearance Clear (Clear) 12/24/23 20:35 Urine pH 5.5 (4.5-7.5) 12/24/23 20:35 Ur Specific [place] 1.018 (1.000-1.030) 12/24/23 20:35 Urine Protein 3+ (Negative) H 12/24/23 20:35 Urine Glucose (UA) Negative (Negative) 12/24/23 20:35 Urine Ketones Negative (Negative) 12/24/23 20:35 Urine Blood Trace (Negative) H 12/24/23 20:35 Urine Nitrite Negative (Negative) 12/24/23 20:35 Urine Bilirubin Negative (Negative) 12/24/23 20:35 Urine Urobilinogen Negative (Negative) 12/24/23 20:35 Ur Leukocyte Esterase 1+ (Negative) H 12/24/23 20:35 Urine WBC (Auto) 21-50 /hpf (0-5) H 12/24/23 20:35 Urine RBC (Auto) 0-2 /hpf (0-2) 12/24/23 20:35 U Hyaline Cast (Auto) 6-10 /lpf (0-2) H 12/24/23 20:35 U Epithel Cells (Auto) 0-2 /hpf (0-2) 12/24/23 20:35 Urine Bacteria (Auto) None Seen (None Seen) 12/24/23 20:35 Lyme Disease Screen Negative (Negative) 12/24/23 18:52 ECG Additional Comments: EKG with heart block, AV dissociation. HR of 46. KUL=508, rightward axis PG Care Time/CCT Total # of Minutes Spent Total Time Spent with Patient: Total time spent is greater than 50% in coordination of care (as documented) at patient's floor/unit and/or counseling patient: Coding Level of Care Code 15866 INT INP/OBS CARE 3/75MIN Diagnoses Third degree heart block I44.2 Type 2 diabetes mellitus with hyperglycemia, with long-term current use of insulin E11.65; Z79.4 LUIS FELIPE (acute kidney injury) N17.9
[2023-12-24 21:46] LABS: Appearance Urine Clear (Clear); Bacteria Urine Automated None Seen (None Seen); Bilirubin Urine Negative (Negative); Blood Urine Trace (Negative); Color Urine Yellow; Epithelial Cell Urine Auto 0-2 /hpf (0-2); Glucose Urine UA Negative (Negative); Ketones Urine Negative (Negative); Leukocyte Esterase Urine 1+ (Negative); Nitrite Urine Negative (Negative); Protein Urine 3+ (Negative); RBC Urine Automated 0-2 /hpf (0-2); Specific Gravity Urine 1.018 (1.000-1.030); Urobilinogen Urine Negative (Negative); WBC Urine Automated 21-50 /hpf (0-5); pH Urine 5.5 (4.5-7.5)
[2023-12-24] MEDS ORDERED: ACETAMINOPHEN 325 MG TAB PO PRN (23:00)
--- NOTE | 2023-12-24 23:01 | Emergency Department Note ---
History of Present Illness General Chief complaint: Bradycardia Stated complaint: LOW PULSE/BRADYCARDIA, FATIGUE, SOB Time Seen by Provider: 12/24/23 19:58 History of Present Illness Provider complaint: Low heart rate shortness of breath fatigue Onset (ago): day(s) 2 73-year-old female presents emergency department for low heart rate shortness of breath and fatigue. Patient states she has been taking her vitals and her heart rate has been consistently low. She denies any chest pain. No falls or traumas. No loss of consciousness. Home Medications Medication Instructions Recorded Confirmed Type cholecalciferol (vitamin D3) 25 1,000 units PO DAILY 09/10/18 12/24/23 History mcg (1,000 unit) capsule chromium picolinate 400 mcg tablet 500 mcg PO DAILY 09/10/18 12/24/23 History cinnamon bark 500 mg capsule 500 mg PO DAILY 09/10/18 12/24/23 History (Cinnamon) magnesium oxide 400 mg PO DAILY 09/10/18 12/24/23 History multivitamin 1 tab PO DAILY 09/10/18 12/24/23 History vitamin B complex 1 tab PO HS 09/10/18 12/24/23 History blood sugar diagnostic (OneTouch #300 ea 01/27/23 12/08/23 Rx Ultra Test strips) insulin syringe-needle U-100 0.5 #300 ea 01/30/23 12/08/23 Rx mL 30 gauge x 1/2" rosuvastatin 40 mg tablet 40 mg PO DAILY #90 tabs 03/13/23 12/24/23 Rx albuterol sulfate 90 mcg/actuation 2 puff inhalation Q4H PRN 07/15/23 12/24/23 Rx aerosol inhaler shortness of breath or wheezing #8.5 grams metformin 500 mg tablet,extended 500 mg PO BID #60 tabs 10/10/23 12/24/23 Rx release 24 hr hydrochlorothiazide 12.5 mg capsule 12.5 mg PO QAM 12/08/23 12/24/23 History spironolactone 25 mg tablet 25 mg PO DAILY #90 tabs 12/08/23 12/24/23 Rx acetaminophen 500 mg tablet 500 mg PO Q6H PRN PAIN/FEVER 12/24/23 12/24/23 History (Tylenol Extra Strength) ascorbic acid (vitamin C) 500 mg 500 mg PO DAILY 12/24/23 12/24/23 History tablet (Vitamin C) aspirin 81 mg tablet,delayed 81 mg PO HS 12/24/23 12/24/23 History release diltiazem HCl 240 mg 240 mg PO HS 12/24/23 12/24/23 History capsule,extended release 24 hr diphenhydramine HCl 25 mg capsule 25 mg PO DIRECTED PRN Congestion 12/24/23 12/24/23 History (Benadryl) fluconazole 100 mg tablet 0 mg PO DIRECTED PRN NEEDED 12/24/23 12/24/23 History PER PT glucosamine sulf dipot 1 cap PO DAILY 12/24/23 12/24/23 History chlr,msm,chond 550 mg-C 30 mg-praveen 1 mg capsule (Glucosamine Chondroitin) guaifenesin 600 mg tablet, 600 mg PO Q12H PRN Congestion 12/24/23 12/24/23 History extended release 12 hr (Mucinex) ibuprofen 200 mg tablet 400 mg PO Q6H PRN PAIN/FEVER 12/24/23 12/24/23 History insulin glargine 100 unit/mL 95 unit subcut QAM 12/24/23 12/24/23 History subcutaneous solution (Lantus U-100 Insulin) levothyroxine 150 mcg tablet 150 mcg PO DAILY #90 tabs 12/24/23 12/24/23 Rx omega-3 fatty acids 1,000 mg 1,000 mg PO DAILY 12/24/23 12/24/23 History capsule orphenadrine citrate 100 mg 100 mg PO BID PRN NEEDED 12/24/23 12/24/23 History tablet,extended release potassium chloride 20 mEq 20 meq PO HS 12/24/23 12/24/23 History tablet,extended release turmeric 400 mg capsule 400 mg PO DAILY 12/24/23 12/24/23 History Allergies Allergy/AdvReac Type Severity Reaction Status Date / Time ciprofloxacin Allergy Intermediate RASH Verified 12/24/23 20:55 sulfamethoxazole Allergy Intermediate HIVES Verified 12/24/23 20:55 trimethoprim Allergy Intermediate HIVES Verified 12/24/23 20:55 feathers Allergy Mild Sneezing Verified 12/24/23 20:55 amlodipine Allergy Unknown CAN'T Verified 12/24/23 20:55 REMEMBER atorvastatin [From Lipitor] Allergy Unknown CAN'T Verified 12/24/23 20:55 REMEMBER fenofibrate Allergy Unknown CAN'T Verified 12/24/23 20:55 REMEMBER losartan Allergy Unknown CAN'T Verified 12/24/23 20:55 REMEMBER Penicillins Allergy Unknown UNSURE Verified 12/24/23 20:55 Rabbit Allergy Unknown Unknown Verified 12/24/23 20:55 carisoprodol AdvReac Unknown CAN'T Verified 12/24/23 20:55 REMEMBER TOBACCO Allergy Unknown Unknown Uncoded 12/24/23 20:55 Past Med/Surg History Problem List (Updated 12/24/23 @ 23:07 by Kaushik Montoya MD) Third degree heart block (Acute) Dysuria Bilateral carotid artery stenosis History of breast cancer 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 GFR 30-59 Type 2 diabetes mellitus with retinopathy Type 2 diabetes mellitus with obesity Fatigue Rotator cuff arthropathy of right shoulder Right shoulder pain CKD (chronic kidney disease) stage 3, GFR 30-59 ml/min Lumbar facet joint syndrome (Chronic) Insulin dependent diabetes mellitus (Chronic) Obesity (Chronic) Lichen simplex chronicus (Chronic) Polyneuropathy (Chronic) History of external beam radiation therapy (Chronic) Herpes simplex (Chronic) Chronic low back pain (Chronic) GERD (gastroesophageal reflux disease) (Chronic) Hypothyroid (Chronic) High cholesterol (Chronic) HTN (hypertension), benign (Chronic) Hemorrhagic cystitis (Acute) Type 2 diabetes mellitus with hyperglycemia, with long-term current use of insulin Medical History Breast cancer Surgical History Status post total abdominal hysterectomy Family History Mother HTN (hypertension), benign Stroke Uterine cancer Father Heart disease Aunt Breast cancer Denies family history of Ovarian cancer Prostate cancer Myocardial infarction Colorectal cancer Social History Smoking Status: Never smoker Do You Dip or Chew Tobacco: No; Hx Alcohol Use: No Hx Substance Use: No Preferred Language: Czech Communication Ability: Effective Visual Impairment: No Limitations Hearing Ability: Normal Testing Tech Required: No Beliefs That Will Affect Care: None marital status: Single Current Living Situation: Alone current occupational status: retired current occupation: Retired bookeeper Feels Safe at Home: Yes Do you think of yourself as: straight/heterosexual Physical Exam Vital Signs Vital Signs - 24 hr 12/24/23 18:22 12/24/23 19:47 12/24/23 19:56 Temperature 36.8 C Temperature Source Temporal Artery Scan Pulse Rate 41 L 42 L Pulse Rate [Left Finger] 50 L Pulse Rate from SpO2 Sensor Pulse Rhythm Regular Pulse Strength Normal Respiratory Rate 18 18 Respiratory Effort / Characteristics Non-Labored Non-Labored Respiratory Depth Normal Normal Respiratory Pattern Regular Blood Pressure 178/64 H Blood Pressure [Right Arm] 159/74 H Blood Pressure Mean 102 Blood Pressure Mean [Right Arm] 102 Blood Pressure Position Sitting Pulse Oximetry 97 96 Oxygen Delivery Method Room Air Room Air Sepsis Recent Fever Within 48 Hours No Sepsis New/Unexplained Change in Mental Status No Sepsis Action Taken by Nursing No Action Required 12/24/23 19:56 12/24/23 19:57 12/24/23 19:57 Temperature Temperature Source Pulse Rate 43 L 43 L Pulse Rate [Left Finger] Pulse Rate from SpO2 Sensor 47 L 44 L Pulse Rhythm Pulse Strength Respiratory Rate 18 16 Respiratory Effort / Characteristics Respiratory Depth Respiratory Pattern Blood Pressure 169/66 H Blood Pressure [Right Arm] Blood Pressure Mean 119 Blood Pressure Mean [Right Arm] Blood Pressure Position Pulse Oximetry 96 Oxygen Delivery Method Sepsis Recent Fever Within 48 Hours Sepsis New/Unexplained Change in Mental Status Sepsis Action Taken by Nursing 12/24/23 20:00 12/24/23 20:10 12/24/23 20:20 Temperature Temperature Source Pulse Rate 45 L 47 L 44 L Pulse Rate [Left Finger] Pulse Rate from SpO2 Sensor 42 L Pulse Rhythm Pulse Strength Respiratory Rate 17 16 17 Respiratory Effort / Characteristics Respiratory Depth Respiratory Pattern Blood Pressure Blood Pressure [Right Arm] Blood Pressure Mean Blood Pressure Mean [Right Arm] Blood Pressure Position Pulse Oximetry 97 Oxygen Delivery Method Sepsis Recent Fever Within 48 Hours Sepsis New/Unexplained Change in Mental Status Sepsis Action Taken by Nursing 12/24/23 20:30 Temperature Temperature Source Pulse Rate 43 L Pulse Rate [Left Finger] Pulse Rate from SpO2 Sensor Pulse Rhythm Pulse Strength Respiratory Rate 21 Respiratory Effort / Characteristics Respiratory Depth Respiratory Pattern Blood Pressure Blood Pressure [Right Arm] Blood Pressure Mean Blood Pressure Mean [Right Arm] Blood Pressure Position Pulse Oximetry Oxygen Delivery Method Sepsis Recent Fever Within 48 Hours Sepsis New/Unexplained Change in Mental Status Sepsis Action Taken by Nursing Physical Exam GENERAL: oriented to person, place, and time. appears well-developed and well- nourished. HENT: Exam performed. - Head: Normocephalic and atraumatic. EYES: Conjunctivae and EOM are normal. Right eye exhibits no discharge. Left eye exhibits no discharge. No scleral icterus. NECK: Normal range of motion. Neck supple. No JVD present. CV: Bradycardic rate, irregular rhythm, normal heart sounds and intact distal pulses. There is no peripheral edema. Palpable radial pulses bue. PULM/CHEST: Effort normal and breath sounds normal. No respiratory distress. No stridor. no wheezes. no rales. NEURO: Motor and sensation grossly intact. SKIN: Skin is warm and dry. He is not diaphoretic. PSYCH: normal mood and affect. Behavior is normal. Judgment and thought content normal. Course Course 1957: The patient was evaluated in room C1. A complete history and physical exam was performed Cardiac monitoring: An order was placed for continuous cardiac monitoring. The monitor shows a rate of 40 with third degree heart block rhythm interpreted by me Patient found to be in third-degree heart block. Will contact cardiology. 2008: Blood pressure stable. Patient remains in heart block. Spoke with Dr. Gaviria. Both he and I agree to admit the patient to the medicine team. Patient's blood pressure is stable she not reporting any chest pain at this time. Pads were placed on the patient. Dr. Gaviria and I both agree that if the patient should become more hypotensive or develop chest pain we could start dopamine and contact him but no need for emergent pacemaker at this time. Dr. Li's team from at any hospitalist team was made aware of the patient. Critical Care Time Critical Care Time: Yes Total Critical Care Time: 47 I have personally spent greater than 47 minutes of critical care time in the direct management of this patient. This includes bedside care, interpretation of diagnostic studies, and testing, discussion with consultants, patient, and family members, and other required patient management activities. This 47 minutes is in excess of all separately billable procedures. Medical Decision Making Laboratory Data Attestation: I reviewed the patient's lab results. 12/24/23 18:52 12/24/23 18:52 Lab Results 12/24/23 12/24/23 Range/Units 18:52 20:35 WBC 10.81 H (4.8-10.8) K/ul RBC 4.25 (4.20-5.40) M/uL Hgb 11.7 L (12.0-16.0) g/dl Hct 36.0 L (37.0-47.0) % MCV 84.7 (80.0-100.0) fL MCH 27.5 (25.0-34.0) pg MCHC 32.5 (32.0-36.0) g/dL RDW Std Deviation 44.7 (36.4-46.3) fL RDW Coeff of Shavon 14.6 H (11.5-14.5) % Plt Count 329 (130-400) K/uL MPV 10.6 (9.4-12.4) fL Immature Gran % (Auto) 0.3 % Neut % (Auto) 78.4 % Lymph % (Auto) 10.9 % [place] % (Auto) 7.1 % Eos % (Auto) 2.5 % Baso % (Auto) 0.8 % Neut # (Auto) 8.47 H (1.40-6.50) K/uL Lymph # (Auto) 1.18 L (1.20-3.40) K/uL [place] # (Auto) 0.77 H (0.11-0.59) K/uL Eos # (Auto) 0.27 (0.00-0.50) K/uL Baso # (Auto) 0.09 (0.00-0.20) K/uL Immature Gran # (Auto) 0.03 (0.01-0.20) K/uL PT 10.8 (9.0-12.0) Seconds INR 1.0 (0.9-1.1) APTT 26 (21-31) Seconds PTT Ratio 1.0 Sodium 133 L (136-145) mmol/L Potassium 5.0 (3.5-5.1) mmol/L Chloride 105 (98-107) mmol/L Carbon Dioxide 19 L (21-32) mmol/L Anion Gap 9 (3-11) BUN 53 H (6-23) mg/dl Creatinine 1.48 H (0.6-1.2) mg/dl Est Cr Clr Drug Dosing 39.0 ml/min Est GFR ( Amer) 40.0 ml/min Est GFR (Non-Af Amer) 34.5 ml/min BUN/Creatinine Ratio 35.8 H (10-20) Glucose 184 H (70-99(Fasting)) mg/dl Calcium 9.4 (8.6-10.3) mg/dl Total Bilirubin 0.3 (0.2-1.0) mg/dl AST 13 (13-39) U/L ALT 14 (7-52) U/L Alkaline Phosphatase 66 (34-104) U/L Troponin I High Sens 6.6 (0-14) pg/ml Total Protein 6.8 (6.0-8.3) gm/dl Albumin 3.6 (3.4-5.0) gm/dl Globulin 3.2 (2.5-4.0) gm/dl Albumin/Globulin Ratio 1.1 (0.9-2) Lipase 17 (11-82) U/L Urine Color Yellow Urine Appearance Clear (Clear) Urine pH 5.5 (4.5-7.5) Ur Specific [place] 1.018 (1.000-1.030) Urine Protein 3+ H (Negative) Urine Glucose (UA) Negative (Negative) Urine Ketones Negative (Negative) Urine Blood Trace H (Negative) Urine Nitrite Negative (Negative) Urine Bilirubin Negative (Negative) Urine Urobilinogen Negative (Negative) Ur Leukocyte Esterase 1+ H (Negative) Urine WBC (Auto) 21-50 H (0-5) /hpf Urine RBC (Auto) 0-2 (0-2) /hpf U Hyaline Cast (Auto) 6-10 H (0-2) /lpf U Epithel Cells (Auto) 0-2 (0-2) /hpf Urine Bacteria (Auto) None Seen (None Seen) Lyme Disease Screen Negative (Negative) Imaging Data Attestation: I personally reviewed and interpreted this imaging study as follows: My Impression: Chest x-ray negative. Airway clear. No pneumothorax. No consolidation. Cardiomegaly nocephalization.. No free air under the diaphragm. No fractures of the skeletal structures. ECG Data Attestation: I personally reviewed and interpreted this ECG as follows: Additional Comments: Third-degree heart block with rate of 46. SD 182 QRS [address] elevation or ST depression. [facility] Narrative 195: The patient was evaluated in room C1. A complete history and physical exam was performed Cardiac monitoring: An order was placed for continuous cardiac monitoring. The monitor shows a rate of 40 with third degree heart block rhythm interpreted by me Patient found to be in third-degree heart block. Will contact cardiology. 2008: Blood pressure stable. Patient remains in heart block. Spoke with Dr. Gaviria. Both he and I agree to admit the patient to the medicine team. Patient's blood pressure is stable she not reporting any chest pain at this time. Pads were placed on the patient. Dr. Gaviria and I both agree that if the patient should become more hypotensive or develop chest pain we could start dopamine and contact him but no need for emergent pacemaker at this time. Dr. Li's team from at any hospitalist team was made aware of the patient. Impression & Plan Third degree heart block Discharge Plan Visit Data Chief Complaint: Bradycardia Stated Complaint: LOW PULSE/BRADYCARDIA, FATIGUE, SOB ED Provider: Kaushik Montoya Discharge Problem: Third degree heart block Patient Disposition: Admitted As Inpatient Discharge Instructions Interventions: ED Discharge Assessment Last Done: 12/24/23 22:32
[2023-12-24] MEDS ORDERED: ALBUTEROL HFA 8 GM INHALER INH PRN (23:05)
[2023-12-24] MEDS ORDERED: CARBOHYDRATES FOR HYPOGLYCEMIA PO PRN (23:08)
[2023-12-24] MEDS ORDERED: GLUCOSE 40% GEL 15 GM TUBE PO PRN (23:08)
[2023-12-24] MEDS ORDERED: GLUCOSE 10 TAB/TUBE PO PRN (23:08)
[2023-12-24] MEDS ORDERED: GLUCAGON FOR INJ 1 MG VIAL SQ PRN (23:08)
[2023-12-24] MEDS ORDERED: DEXTROSE 50% 50 ML SYRINGE IV PRN (23:08)
[2023-12-24 23:12] LABS: Magnesium 2.5 mg/dl (1.7-2.4)
[2023-12-24] MEDS: LACTATED RINGER'S 1,000 ML IV SCH (23:12)
[2023-12-24 23:17] LABS: Phosphorus 4.5 mg/dl (2.5-4.9)
[2023-12-24 23:31] LABS: Thyroid Stimulating Hormone 1.37 uIu/ml (0.300-4.500)
[2023-12-25 04:21] LABS: Albumin Level 3.4 gm/dl (3.4-5.0); BUN Creatinine Ratio 32.9 (10-20); Bilirubin Direct 0.1 mg/dl (0-0.2); Bilirubin,Total 0.3 mg/dl (0.2-1.0); Calcium 9.3 mg/dl (8.6-10.3); Creatinine Clr Calc Pharmacy 41.6 ml/min; Est GFR (African American) 42.8 ml/min; Est GFR (Non-African American) 36.9 ml/min; Potassium 4.5 mmol/L (3.5-5.1); Total Protein 6.4 gm/dl (6.0-8.3)
[2023-12-25 04:26] LABS: Hematocrit (blood only) 36.3 % (37.0-47.0); Hemoglobin 11.6 g/dl (12.0-16.0); Mean Corpuscular Hemoglobin 27.2 pg (25.0-34.0); Mean Corpuscular Volume 85.2 fL (80.0-100.0); Mean Platelet Volume 10.7 fL (9.4-12.4); Platelet Count 273 K/uL (130-400); RDW Coefficient of Variation 14.3 % (11.5-14.5); RDW Standard Deviation 44.3 fL (36.4-46.3); Red Blood Count 4.26 M/uL (4.20-5.40); White Blood Count 10.58 K/ul (4.8-10.8)
--- NOTE | 2023-12-25 06:48 | XRay Report ---
XR chest 1V portable CLINICAL HISTORY: Chest pain, nonspecific TECHNIQUE: Single frontal radiograph of the chest was obtained. Comparison: Comparison is made to rib series 05/06/2017 FINDINGS: No lines and tubes are seen. Cardiomegaly is noted. The lungs are clear. No evidence of pleural effus ion or pneumothorax. IMPRESSION: No acute chest disease. Cardiomegaly is noted. ACT 112: Negative or not required by law. Electronically signed by: Tarik Rubio M.D. 12/25/2023 6:47 AM
[2023-12-25 07:22] LABS: Estimated Average Glucose 266 mg/dl; Hemoglobin A1C 10.9 % (4.5-5.6)
[2023-12-25] MEDS: LEVOTHYROXINE SODIUM 150 MCG TABLET PO SCH (08:23)
[2023-12-25] MEDS: ROSUVASTATIN CALCIUM 20 MG TAB PO SCH (08:23)
[2023-12-25] MEDS: LANTUS PER UNIT CHARGE SQ SCH (08:24)
[2023-12-25] MEDS: INSULIN ASPART PER UNIT CHARGE SC SCH (08:24)
[2023-12-25] MEDS: LORATADINE 10 MG TAB PO ONE (12:02)
--- NOTE | 2023-12-25 13:46 | XCELERA ---
[id number] \\[id number]
--- NOTE | 2023-12-25 15:13 | Hospitalist Progress Note ---
Date of Service December 25, 2023 Assessment & Plan (1) Third degree heart block: Plan: 73yo female presenting with bradycardia, some SOB and palpitations. Found to be in complete heart block with HR in the 40's. Blood pressure is maintained. Patient is mentating well with minimal symptoms. No clinical evidence of CHF. She does have LUIS FELIPE, possible poor perfusion. Admitted to medical with telemetry. -No obvious etiology identified for her heart block. Likely a component of age- related conduction abnormality. -Electrolytes and TSH are within normal limits. Lyme screen is Negative. -Echo done. No regional wall motion abnormalities. Mild LVH, EF 60-65%, mild- moderate aortic stenosis. -Hold Diltiazem -Cardiology consultation appreciated -Will keep patient NPO in the event of pacer placement -Should patient decompensate or become hypotensive will initiate Dopamine (2) Type 2 diabetes mellitus with hyperglycemia, with long-term current use of insulin: Plan: Patient with DM. She is on metformin as well as 95u of Lantus qAM. Poorly controlled with last XmaH1A=44.6 on 09/23/23. Patient will be NPO for now for possible pacer placement. -Hold Metformin -Lantus 25u BID -ISS -Goal blood sugar 110 - 140 -HgbA1C 10.9 today (3) LUIS FELIPE (acute kidney injury): Plan: Elevation of BUN and Cr from baseline of 0.99. Possibly secondary to poor perfusion in setting of CHB and bradycardia. -Cr 1.48 on admission, trending down at 1.40 today. -LR @ 100mL/hr for mIVF while NPO -Repeat chemistry in AM -Avoid nephrotoxic agent - Hold HCTZ, Ibuprofen, Potassium and Spironolactone -Renal dosing where needed -Close outpatient laboratory monitoring if patient is to continue on Spironolactone and KCl Plan Hypothyroidism - chronic. stable -Continue Synthroid 150mcg po daily Hyperlipidemia - Chronic. Stable -Continue Crestor 40mg po daily POA - Friend Elif Nichols [phone] FEN/GI: NPO - awaiting cards consult wrt pacemaker Code Status: Full DVT ppx: SCDs Dispo: Med/surg with tele Admission and Anticipated Discharge Date Admission Date: December 24, 2023 Supervising Physician Co-Signing Physician Notes I personally examined the patient and verified all wall points of history and exam, discussed case, and agree with decision making with A Grecia MS4 and Dr Trujillo Discussed with cardiology. Patient procedure went well. Patient with no complaintswas only able to briefly see given that she was post procedure and on the phone with a friend. Vitals noted, in general appears to be in no distress. Breathing unlabored. Paced rhythm on monitor. Complete heart blockdoes not appear to be Lyme or VT relatedlikely just conduction system disease. Now stable status post pacer. Watch into tomorrow. Otherwise as above. Subjective Tate Trejo is a pleasant 73yo female with history of DM, HTN, HLP, GERD, Hy pothyroidism, CKD who presented with bradycardia and irregular heart beat. Day 1 of admission for complete heart block. No acute overnight events. Pt denies any SOB, chest pains, palpitations or fati andrew since admission. Reports that her only sx are nasal congestion and cough due to post nasal drip. She relates this to a URI she had 2-3 weeks ago, was previously taking benadryl and mucinex which controlled her sx and expresses frustration due to not being able to take decongestants right now. Questioning how quickly she may be discharged. Physical Exam Physical Exam: General: patient resting comfortably, NAD, non-toxic in appearance, AA&O x 4 Skin: warm, dry, intact, no rashes or lesions HEENT: NC/AT, PERRL, EOMI, anicteric sclera, conjunctiva without injection, external ear normal to inspection and nontender, nares patent, moist mucus membranes, dentition intact, no oropharyngeal lesions, neck supple, no JVD Heart: +S1/S2, irregularly irregular, bradycardic @ 44bpm Lungs: equal air entry bilaterally, no rales/rhonchi/wheezes Abd: +BS, soft, NT/ND, no masses/organomegaly/ascites Ext: warm, 2+ pulses in UE/LE bilaterally, no clubbing/cyanosis or edema Results & Data Results & Data Vital Signs (Past 12 Hours) Vital Signs Temp Pulse Pulse Resp BP BP Pulse Ox 12/25/23 12:01 36.7 C 12/25/23 12:00 49 L 19 90 12/25/23 11:52 171/59 H 12/25/23 11:52 48 L 20 98 12/25/23 11:00 46 L 21 90 12/25/23 10:00 46 L 23 97 12/25/23 09:00 44 L 18 97 12/25/23 08:53 12/25/23 08:37 46 L 13 100 12/25/23 08:37 155/63 H 12/25/23 08:00 45 L 20 96 12/25/23 08:00 36.6 C 12/25/23 04:37 36.7 C 44 L 18 160/56 H 98 O2 Del Method 12/25/23 12:01 12/25/23 12:00 12/25/23 11:52 12/25/23 11:52 12/25/23 11:00 12/25/23 10:00 12/25/23 09:00 12/25/23 08:53 Room Air 12/25/23 08:37 12/25/23 08:37 12/25/23 08:00 12/25/23 08:00 12/25/23 04:37 Room Air
--- NOTE | 2023-12-25 15:21 | Electrocardiogram Report ---
Test Reason : Blood Pressure : / mmHG Vent. Rate : 046 BPM Atrial Rate : 046 BPM P-R Int : 182 ms QRS Dur : 156 ms QT Int : 562 ms P-R-T Axes : 083 109 081 degrees QTc Int : 491 ms Sinus rhythm with complete heart block with ventricular escape complexes Rightward axis Non-specific intra-ventricular conduction block Abnormal ECG No previous ECGs available Confirmed by Agustin Gallardo ([id number]) on 12/25/2023 3:21:19 PM Referred By: REFERRED SELF Confirmed By:Agustin Gallardo
--- NOTE | 2023-12-25 15:39 | Pre Anesthesia Assessment ---
Date of Service December 25, 2023 Pre Sedation Assessment Vital Signs Temp Pulse Pulse Resp BP BP Pulse Ox 12/25/23 15:30 49 L 12/25/23 15:00 47 L 12 97 12/25/23 14:49 164/77 H 12/25/23 14:49 49 L 15 99 12/25/23 14:00 46 L 20 96 12/25/23 13:00 47 L 16 96 12/25/23 12:01 36.7 C 12/25/23 12:00 49 L 19 90 12/25/23 11:52 171/59 H 12/25/23 11:52 48 L 20 98 12/25/23 11:00 46 L 21 90 12/25/23 10:00 46 L 23 97 12/25/23 09:00 44 L 18 97 12/25/23 08:53 12/25/23 08:37 46 L 13 100 12/25/23 08:37 155/63 H 12/25/23 08:00 45 L 20 96 12/25/23 08:00 36.6 C 12/25/23 04:37 36.7 C 44 L 18 160/56 H 98 12/25/23 00:47 44 L 12/25/23 00:25 12/24/23 23:50 45 L 12/24/23 23:16 36.5 C 44 L 18 162/74 H 96 12/24/23 22:30 43 L 17 12/24/23 22:20 44 L 15 12/24/23 22:10 48 L 18 12/24/23 22:00 45 L 21 12/24/23 21:50 48 L 12/24/23 21:40 44 L 21 12/24/23 21:30 43 L 23 12/24/23 21:20 43 L 12 12/24/23 21:10 44 L 19 12/24/23 21:01 171/60 H 12/24/23 21:01 44 L 18 12/24/23 21:00 44 L 16 12/24/23 20:50 45 L 22 12/24/23 20:48 169/69 H 12/24/23 20:48 45 L 18 12/24/23 20:40 44 L 19 12/24/23 20:40 12/24/23 20:40 12/24/23 20:30 43 L 21 12/24/23 20:20 44 L 17 12/24/23 20:10 47 L 16 12/24/23 20:00 45 L 17 97 12/24/23 19:57 43 L 16 96 12/24/23 19:57 169/66 H 12/24/23 19:56 43 L 18 12/24/23 19:56 42 L 12/24/23 19:47 50 L 18 159/74 H 96 12/24/23 18:22 36.8 C 41 L 18 178/64 H 97 O2 Del Method 12/25/23 15:30 12/25/23 15:00 12/25/23 14:49 12/25/23 14:49 12/25/23 14:00 12/25/23 13:00 12/25/23 12:01 12/25/23 12:00 12/25/23 11:52 12/25/23 11:52 12/25/23 11:00 12/25/23 10:00 12/25/23 09:00 12/25/23 08:53 Room Air 12/25/23 08:37 12/25/23 08:37 12/25/23 08:00 12/25/23 08:00 12/25/23 04:37 Room Air 12/25/23 00:47 12/25/23 00:25 Room Air 12/24/23 23:50 12/24/23 23:16 Room Air 12/24/23 22:30 12/24/23 22:20 12/24/23 22:10 12/24/23 22:00 12/24/23 21:50 12/24/23 21:40 12/24/23 21:30 12/24/23 21:20 12/24/23 21:10 12/24/23 21:01 12/24/23 21:01 12/24/23 21:00 12/24/23 20:50 12/24/23 20:48 12/24/23 20:48 12/24/23 20:40 12/24/23 20:40 Room Air 12/24/23 20:40 Room Air 12/24/23 20:30 12/24/23 20:20 12/24/23 20:10 12/24/23 20:00 12/24/23 19:57 12/24/23 19:57 12/24/23 19:56 12/24/23 19:56 12/24/23 19:47 Room Air 12/24/23 18:22 Room Air Cardiovascular + bradycardic Respiratory + respiratory effort normal Pre-Sedation Airway Assessment Smoking Status: Never smoker Hx Sleep Apnea: No Hx Difficult Intubation: No Short, Thick Neck: No Thyromental Distance: > or= 3.5 Finger Breadths Oral Cavity: + WNL Mallampati Class: III ASA: ASA3 Procedure Planning Contraindications for Sedation: none Current Medications Reviewed: Yes Notes The planned sedation has been discussed with the patient. Informed Consent was obtained. I have identified the patient, determined the appropriateness of sedation and have assessed the patient immediately prior to the procedure. All medicine(s) and interventions are by my order.
[2023-12-25] MEDS: LIDOCAINE 1% LOCAL 20 ML VIAL ONE (16:37)
[2023-12-25] MEDS: ceFAZolin 330 MG/ML 1 GM VIAL ONE (16:37)
[2023-12-25] MEDS: BUPIVACAINE 0.25% PF 30 ML VIAL ONE (16:38)
[2023-12-25] MEDS: WATER, STERILE FOR INJ 10 ML VIAL ONE (16:38)
[2023-12-25] MEDS: VANCOMYCIN HCL 1000MG/20ML VIAL ONE (16:53)
--- NOTE | 2023-12-25 17:12 | Electrophysiology Report ---
Date of Service December 25, 2023 Electrophysiology Procedure Electrophysiology Procedure Report Procedure performed: Implantation of dual-chamber permanent pacemaker with left bundle pacing lead Staff shellfish dredge operator: Shaquille Morris MD Indication: The patient is a 73-year-old woman who presented to the hospital with symptoms of exertional dyspnea and fatigue. She was discovered to have bradycardia associated with complete heart block. She was felt to be a good candidate for permanent pacemaker due to symptomatic nonreversible AV node dysfunction. A dual-chamber device was selected as she is currently in sinus rhythm and wished to maintain AV synchrony. Procedure in detail: The patient was informed of the risks benefits and alternatives to the intended procedure and she wished to proceed. She was taken to the electrophysiology suite in a fasting state. A preoperative antibiotic had been administered. The patient was monitored electrocardiographically throughout today's procedure and conscious sedation was administered per protocol. The right upper pectoral area is prepped and draped in usual sterile fashion. This area was anesthetized using subcutaneous administration of a xylocaine solution. An incision was made at this site and carried down to the prepectoralis fascia using sharp dissection. Electrocautery was also employed for dissection as well as for hemostasis. A device pocket was fashioned tissues above the pectoralis muscle. Subsequent to this maneuver the right axillary vein was accessed using modified Seldinger technique. Sheath was placed over the guidewire [place] passage of the pacing lead to the right ventricular apex under fluoroscopic guidance. This was secured into place and provided backup pacing during placement of the other leads. A sheath was placed over the remaining guidewire and use facilitate passage of a guiding catheter for mapping of the interventricular septum. Once an adequate location was identified a pacing lead was advanced into the interventricular septum into the appropriate pacing characteristics were obtained. The guiding catheter was subsequently removed. The proximal portion of lead was then sutured the prepectoralis fascia using nonabsorbable suture. The previously placed right ventricular apical lead was then removed into the right atrium under fluoroscopic guidance. Adequate sensing and threshold parameters were obtained prior to active fixation of this lead to the endocardial surface. The proximal portion of the lead was then sutured to the prepectoralis fascia using nonabsorbable suture. The device pocket was irrigated with antibiotic solution. The leads were then attached to the device. The device and leads were then placed in the pocket and pocket was closed in 3 layers of absorbable suture. Steri-Strips and sterile dressing were applied. The device was tested noninvasively prior to conclusion the procedure. The patient tolerated procedure well there no immediate complications. Equipment used: New pulse generator: [employer]. Model number: [id number] serial number [id number] Right atrial lead: [employer]. Model number: [id number] serial number [id number] Right ventricular lead: [employer]. Model number: 3830 serial number [id number] Measured data: Right atrial lead: P waves measured 3.6 mV. Pacing threshold was 2.75 V at 0.4 ms with a pacing impedance of 608 ohms Right ventricular lead: R waves measured 16.1 mV. Pacing threshold was 1 V at 0.4 ms with a pacing impedance of 627 ohms Impression: Successful implantation of dual-chamber permanent pacemaker with left bundle pacing lead [facility] Electrophysiology codes Pacing Procedure 1: Pacin Insert/Replace Pacer A & V PG Moderate Sedation Codes Moderate Sedation Codes Procedure 1: Sedation/Anesthesia: 81659 Mod Sedation by the same physician;Init15 Min Child Age 5 & Up Procedure 2: Sedation/Anesthesia: 00713 Mod Sedation by the same physician; Ea [id number] Minutes
--- NOTE | 2023-12-25 17:12 | Post Anesthesia Assessment ---
Date of Service December 25, 2023 Post Sedation Assessment Vital Signs Temp Pulse Pulse Resp BP BP Pulse Ox 12/25/23 15:41 48 L 16 118/60 97 12/25/23 15:30 49 L 12/25/23 15:00 47 L 12 97 12/25/23 14:49 164/77 H 12/25/23 14:49 49 L 15 99 12/25/23 14:00 46 L 20 96 12/25/23 13:00 47 L 16 96 12/25/23 12:01 36.7 C 12/25/23 12:00 49 L 19 90 12/25/23 11:52 171/59 H 12/25/23 11:52 48 L 20 98 12/25/23 11:00 46 L 21 90 12/25/23 10:00 46 L 23 97 12/25/23 09:00 44 L 18 97 12/25/23 08:53 12/25/23 08:37 46 L 13 100 12/25/23 08:37 155/63 H 12/25/23 08:00 45 L 20 96 12/25/23 08:00 36.6 C 12/25/23 04:37 36.7 C 44 L 18 160/56 H 98 12/25/23 00:47 44 L 12/25/23 00:25 12/24/23 23:50 45 L 12/24/23 23:16 36.5 C 44 L 18 162/74 H 96 12/24/23 22:30 43 L 17 12/24/23 22:20 44 L 15 12/24/23 22:10 48 L 18 12/24/23 22:00 45 L 21 12/24/23 21:50 48 L 12/24/23 21:40 44 L 21 12/24/23 21:30 43 L 23 12/24/23 21:20 43 L 12 12/24/23 21:10 44 L 19 12/24/23 21:01 171/60 H 12/24/23 21:01 44 L 18 12/24/23 21:00 44 L 16 12/24/23 20:50 45 L 22 12/24/23 20:48 169/69 H 12/24/23 20:48 45 L 18 12/24/23 20:40 44 L 19 12/24/23 20:40 12/24/23 20:40 05/22/24 20:30 43 L 21 12/24/23 20:20 44 L 17 12/24/23 20:10 47 L 16 12/24/23 20:00 45 L 17 97 12/24/23 19:57 43 L 16 96 12/24/23 19:57 169/66 H 12/24/23 19:56 43 L 18 12/24/23 19:56 42 L 12/24/23 19:47 50 L 18 159/74 H 96 12/24/23 18:22 36.8 C 41 L 18 178/64 H 97 O2 Del Method 12/25/23 15:41 Room Air 12/25/23 15:30 12/25/23 15:00 12/25/23 14:49 12/25/23 14:49 12/25/23 14:00 12/25/23 13:00 12/25/23 12:01 12/25/23 12:00 12/25/23 11:52 12/25/23 11:52 12/25/23 11:00 12/25/23 10:00 12/25/23 09:00 12/25/23 08:53 Room Air 12/25/23 08:37 12/25/23 08:37 12/25/23 08:00 12/25/23 08:00 12/25/23 04:37 Room Air 12/25/23 00:47 12/25/23 00:25 Room Air 12/24/23 23:50 12/24/23 23:16 Room Air 12/24/23 22:30 12/24/23 22:20 12/24/23 22:10 12/24/23 22:00 12/24/23 21:50 12/24/23 21:40 12/24/23 21:30 12/24/23 21:20 12/24/23 21:10 12/24/23 21:01 12/24/23 21:01 12/24/23 21:00 12/24/23 20:50 12/24/23 20:48 12/24/23 20:48 12/24/23 20:40 12/24/23 20:40 Room Air 12/24/23 20:40 Room Air 12/24/23 20:30 12/24/23 20:20 12/24/23 20:10 12/24/23 20:00 12/24/23 19:57 12/24/23 19:57 12/24/23 19:56 12/24/23 19:56 12/24/23 19:47 Room Air 12/24/23 18:22 Room Air Recovery Score Activity: Moves 4 extremities Respiration: Deep Breath/Cough Circulation: +/-20-49% PreAnes Value Consciousness: Fully Awake Oxygen Saturation: > 92% On Room Air Discharge Sedation Level of Care: Fast Track Phase II Post Sedation Plan On clinical assessment, the patient appears to have tolerated the sedation without complications. Patient is recovering as anticipated. Patient will continue to be monitored by nursing and may be discharged when sedation discharge criteria are met per below protocol. Upon Completions of procedure up to 15 minutes continue every 5 minute vital signs and the P.A.R. score; then discharge to a Phase I or Fast Track to Phase II per the following guidelines: * Discharge Patient to appropriate Phase II area if PAR is 8 or greater or return to pre- procedure baseline. The post - procedure orders will be as directed. * If PAR score is less than 8 or not return to pre-procedure baseline then patient will follow Phase I monitoring till PAR is reached for Phase II. The Phase I may be done in procedure room or may call to secure a Phase I area. * If naloxone or flumazenil are used for reversal, hold in Phase I for continued monitoring from when last reversal dose was given for a minimum of 60 minutes or longer pending the nurse and/or physician discretion of patient condition before discharge to Phase II. Please call the Sedation Physician to re-evaluate and complete post-note for discharge to Phase II area. Do NOT discharge from procedure sedation or Phase 1 until post- sedation evaluation note is complete by procedure /sedation MD Sedation Discharge Instructions to be given to the patient at discharge to home.
[2023-12-25] MEDS: fentaNYL citrate PF 100 MCG/2 ML VIAL ONE (17:13)
[2023-12-25] MEDS: MIDAZOLAM HCL 5 MG/ML 1 ML VIAL ONE (17:14)
--- NOTE | 2023-12-25 18:02 | Billing Data ---
Date of Service December 25, 2023 Coding Level of Care Code 46420 SUB INP/OBS CARE
--- NOTE | 2023-12-25 20:54 | Cardiology Consultation ---
Date of Consultation December 25, 2023 Assessment & Plan (1) Third degree heart block: Plan 1. Heart block: There is not appear to be a reversible etiology. This is likely age related. Based on her associated symptoms she appears to be a good candidate for a permanent pacemaker. I discussed the procedure and attendant risks with the patient and we will proceed today. 2. Valvular heart disease: She has an element of aortic stenosis and mitral regurgitation. Neither which is severe. This can be followed over time. 3. Symptomatic bradycardia: She has symptoms associated with activity. This related to her heart block. This should resolve with implantation of pacemaker. History of Present Illness Reason for Consultation: Bradycardia, heart block Requesting Physician: Guillermo Attending Physician: Dimitris Salvador, History of Present Illness The patient is a 73-year-old woman without a known history of cardiac disease per and sent to the hospital with symptoms of palpitations, irregular heartbeat and exercise intolerance. The patient states that for few weeks she has been battling which she believed was an upper respiratory infection. This resulted in some mild dyspnea and coughing. No associated fevers or chills. Recently she has been having difficulty doing her routine activity due to dyspnea and fatigue. She denies significant dizziness or lightheadedness. No symptoms of presyncope and no history of syncope. Based on the prolonged nature of her symptoms she presented to the emergency room and was discovered to have bradycardia in the setting of high-degree AV block. One resting patient is feeling well. Again no sense of palpitation currently. No chest pain. No prior history of significant exercise intolerance or dyspnea. In general she has a reasonable level of activity without associated symptoms. Allergies Allergy/AdvReac Type Severity Reaction Status Date / Time ciprofloxacin Allergy Intermediate RASH Verified 12/24/23 20:55 sulfamethoxazole Allergy Intermediate HIVES Verified 12/24/23 20:55 trimethoprim Allergy Intermediate HIVES Verified 12/24/23 20:55 feathers Allergy Mild Sneezing Verified 12/24/23 20:55 amlodipine Allergy Unknown CAN'T Verified 12/24/23 20:55 REMEMBER atorvastatin [From Lipitor] Allergy Unknown CAN'T Verified 12/24/23 20:55 REMEMBER fenofibrate Allergy Unknown CAN'T Verified 12/24/23 20:55 REMEMBER losartan Allergy Unknown CAN'T Verified 12/24/23 20:55 REMEMBER Penicillins Allergy Unknown UNSURE Verified 12/24/23 20:55 Rabbit Allergy Unknown Unknown Verified 12/24/23 20:55 carisoprodol AdvReac Unknown CAN'T Verified 12/24/23 20:55 REMEMBER TOBACCO Allergy Unknown Unknown Uncoded 12/24/23 20:55 Home Medications Medication Instructions Recorded Confirmed Type cholecalciferol (vitamin D3) 25 1,000 units PO DAILY 09/10/18 12/24/23 History mcg (1,000 unit) capsule chromium picolinate 400 mcg tablet 500 mcg PO DAILY 09/10/18 12/24/23 History cinnamon bark 500 mg capsule 500 mg PO DAILY 09/10/18 12/24/23 History (Cinnamon) magnesium oxide 400 mg PO DAILY 09/10/18 12/24/23 History multivitamin 1 tab PO DAILY 09/10/18 12/24/23 History vitamin B complex 1 tab PO HS 09/10/18 12/24/23 History blood sugar diagnostic (OneTouch #300 ea 01/27/23 12/08/23 Rx Ultra Test strips) insulin syringe-needle U-100 0.5 #300 ea 01/30/23 12/08/23 Rx mL 30 gauge x 1/2" rosuvastatin 40 mg tablet 40 mg PO DAILY #90 tabs 03/13/23 12/24/23 Rx albuterol sulfate 90 mcg/actuation 2 puff inhalation Q4H PRN 07/15/23 12/24/23 Rx aerosol inhaler shortness of breath or wheezing #8.5 grams metformin 500 mg tablet,extended 500 mg PO BID #60 tabs 10/10/23 12/24/23 Rx release 24 hr hydrochlorothiazide 12.5 mg capsule 12.5 mg PO QAM 12/08/23 12/24/23 History spironolactone 25 mg tablet 25 mg PO DAILY #90 tabs 12/08/23 12/24/23 Rx acetaminophen 500 mg tablet 500 mg PO Q6H PRN PAIN/FEVER 12/24/23 12/24/23 History (Tylenol Extra Strength) ascorbic acid (vitamin C) 500 mg 500 mg PO DAILY 12/24/23 12/24/23 History tablet (Vitamin C) aspirin 81 mg tablet,delayed 81 mg PO HS 12/24/23 12/24/23 History release diltiazem HCl 240 mg 240 mg PO HS 12/24/23 12/24/23 History capsule,extended release 24 hr diphenhydramine HCl 25 mg capsule 25 mg PO DIRECTED PRN Congestion 12/24/23 12/24/23 History (Benadryl) fluconazole 100 mg tablet 0 mg PO DIRECTED PRN NEEDED 12/24/23 12/24/23 History PER PT glucosamine sulf dipot 1 cap PO DAILY 12/24/23 12/24/23 History chlr,msm,chond 550 mg-C 30 mg-praveen 1 mg capsule (Glucosamine Chondroitin) guaifenesin 600 mg tablet, 600 mg PO Q12H PRN Congestion 12/24/23 12/24/23 History extended release 12 hr (Mucinex) ibuprofen 200 mg tablet 400 mg PO Q6H PRN PAIN/FEVER 12/24/23 12/24/23 History insulin glargine 100 unit/mL 95 unit subcut QAM 12/24/23 12/24/23 History subcutaneous solution (Lantus U-100 Insulin) levothyroxine 150 mcg tablet 150 mcg PO DAILY #90 tabs 12/24/23 12/24/23 Rx omega-3 fatty acids 1,000 mg 1,000 mg PO DAILY 12/24/23 12/24/23 History capsule orphenadrine citrate 100 mg 100 mg PO BID PRN NEEDED 12/24/23 12/24/23 History tablet,extended release potassium chloride 20 mEq 20 meq PO HS 12/24/23 12/24/23 History tablet,extended release turmeric 400 mg capsule 400 mg PO DAILY 12/24/23 12/24/23 History Patient History Medical History Breast cancer Surgical History Status post total abdominal hysterectomy Family History Mother HTN (hypertension), benign Stroke Uterine cancer Father Heart disease Aunt Breast cancer Denies family history of Ovarian cancer Prostate cancer Myocardial infarction Colorectal cancer Social History Smoking Status: Never smoker Second Hand Exposure: No; Do You Dip or Chew Tobacco: No; Hx Alcohol Use: No Hx Substance Use: No Preferred Language: British Communication Ability: Effective Visual Impairment: No Limitations Hearing Ability: Normal Behavior Support Specialist Required: No Beliefs That Will Affect Care: None marital status: Single Current Living Situation: Alone current occupational status: retired current occupation: Retired bookeeper Feels Safe at Home: Yes Do you think of yourself as: straight/heterosexual Assistive Devices: None Review of Systems Review of Systems: Per HPI. Physical Exam Physical Exam: She is alert and oriented x3. Mood affect appear normal. She answered all questions appropriately. HEENT: Sclerae are anicteric. Pupils are equal and reactive to light and accommodation. Extraocular movements were intact. Neuro: Cranial nerves intact Lungs: Lungs are clear to auscultation bilaterally. There are no rales wheezes or rhonchi. She has normal respiratory effort without use of accessory muscles. There is normal pulmonary excursion. Cardiac: The rhythm was regular. Bradycardia. S1 and S2 were normal. Crescendo systolic murmur. The PMI was not markedly displaced on palpation. Extremities: Patient has bilateral radial pulses that are equal in intensity. There is no evidence cyanosis or clubbing. There was no evidence of significant peripheral edema bilaterally. Skin: There are no rashes noted on examination today. Results & Data Vital Signs (Past 12 Hours) Vital Signs Temp Pulse Pulse Resp BP BP Pulse Ox 12/25/23 18:02 36.6 C 144/84 H 12/25/23 18:00 92 H 23 95 12/25/23 17:45 89 24 97 12/25/23 17:35 90 21 100 12/25/23 17:35 127/90 12/25/23 17:33 90 20 100 12/25/23 17:13 12/25/23 15:41 48 L 16 118/60 97 12/25/23 15:30 49 L 12/25/23 15:00 47 L 12 97 12/25/23 14:49 164/77 H 12/25/23 14:49 49 L 15 99 12/25/23 14:00 46 L 20 96 12/25/23 13:00 47 L 16 96 12/25/23 12:01 36.7 C 12/25/23 12:00 49 L 19 90 12/25/23 11:52 171/59 H 12/25/23 11:52 48 L 20 98 12/25/23 11:00 46 L 21 90 12/25/23 10:00 46 L 23 97 12/25/23 09:00 44 L 18 97 O2 Del Method 12/25/23 18:02 12/25/23 18:00 12/25/23 17:45 12/25/23 17:35 12/25/23 17:35 12/25/23 17:33 12/25/23 17:13 Room Air 12/25/23 15:41 Room Air 12/25/23 15:30 12/25/23 15:00 12/25/23 14:49 12/25/23 14:49 12/25/23 14:00 12/25/23 13:00 12/25/23 12:01 12/25/23 12:00 12/25/23 11:52 12/25/23 11:52 12/25/23 11:00 12/25/23 10:00 12/25/23 09:00 Laboratory Results Echocardiogram performed 12/25/2023: Normal LV systolic function with ejection fraction 60 65%. Mild to moderate valvular aortic stenosis. Mild LVH. Mild mitral regurgitation. PG Care Time/CCT Total # of Minutes Spent Total Time Spent with Patient: Total time spent is greater than 50% in coordination of care (as documented) at patient's floor/unit and/or counseling patient: Coding Level of Care Code 81400 INT INP/OBS CARE 3/75MIN Diagnoses Third degree heart block I44.2
[2023-12-25] MEDS: oxyCODONE HCL IR 5 MG TAB (IMMEDIATE RELEASE) PO PRN (22:16)
[2023-12-25] MEDS: ceFAZolin 1000MG 1,000 MG/7.5 ML SYR IV ONE (22:20)
[2023-12-26 05:12] LABS: Hemoglobin 11.3 g/dl (12.0-16.0); Mean Corpuscular Hemoglobin 27.4 pg (25.0-34.0); Mean Corpuscular Hgb Conc 32.3 g/dL (32.0-36.0); Mean Platelet Volume 10.1 fL (9.4-12.4); Platelet Count 315 K/uL (130-400); RDW Coefficient of Variation 14.3 % (11.5-14.5); RDW Standard Deviation 44.2 fL (36.4-46.3); Red Blood Count 4.12 M/uL (4.20-5.40); White Blood Count 10.62 K/ul (4.8-10.8)
[2023-12-26 05:15] LABS: BUN Creatinine Ratio 26.1 (10-20); Calcium 8.8 mg/dl (8.6-10.3); Creatinine Clr Calc Pharmacy 50.7 ml/min; Est GFR (African American) 54.3 ml/min; Est GFR (Non-African American) 46.8 ml/min; Potassium 4.2 mmol/L (3.5-5.1)
--- NOTE | 2023-12-26 09:38 | Cardiology Progress Note ---
Date of Service December 26, 2023 Assessment & Plan (1) Third degree heart block: Plan: She appears to have undergone a successful placement of a dual-chamber permanent pacemaker yesterday. No evident complication but chest x-ray still pending. I think the chest x-ray looks good she could be discharged home. She should refrain from lifting the right arm above the shoulder behind the neck for 6 weeks. She needs to keep the wound dry and Steri-Strips intact for 5-7 days. I will arrange follow-up in our clinic for a nurse evaluation next week. She can resume all of her usual medications. Admission and Anticipated Discharge Date Admission Date: December 24, 2023 Subjective Patient reported some minor discomfort at the implant site. She slept well last night but was woken early by phlebotomy. Overall feeling well. Physical Exam Physical Exam: Alert and oriented Normal respiratory effort Device implant site in the right upper pectoral area appears to be healing well. Minor ecchymosis. No hematoma. Results & Data Vital Signs (Past 12 Hours) Vital Signs Temp Pulse Pulse Resp BP Pulse Ox O2 Del Method 12/26/23 00:00 92 H 19 140/73 95 Room Air 12/26/23 00:00 94 H 12/25/23 22:00 36.8 C 91 H 19 137/79 94 Room Air Diagnostic Findings Device evaluation reveals normal function on both atrial and ventricular leads. Chest x-ray pending
--- NOTE | 2023-12-26 12:47 | Discharge Summary ---
Date of Service December 26, 2023 Admission HPI Per Admitting Provider Tate Trejo is a pleasant 73yo female with history of DM, HTN, HLP, GERD, Hypothyroidism, CKD presenting with bradycardia and irregular heart beat. Patient routinely measures her vital signs at home with use of an automated blood pressure cuff. She records these values in her book. Around early October () she began getting some readings that indicated an irregular rhythm which were occasional. Over the last several days (since December 19) she has had fairly consistent irregular rhythms as well as bradycardia - heart rates ranging 40's - 50's. Patient is mildly symptomatic. She experiences occasional palpitations as well as shortness of breath and fatigue. She denies chest pain, dizziness or syncope. Denies edema, orthopnea or weight gain. No confusion. Patient was recently ill with a three week URI. She was taking Benadryl and Mucinex. She did not get any viral testing for this illness. She reports that her symptoms are largely resolved with exception of continued nasal congestion and some post-nasal drip. She takes Fluconazole PRN for yeast infections and took a tablet yesterday. She denies exposure to ticks or tick bites. In the ER she was found to be in complete heart block. Admission Exam Per Admitting Provider General: patient resting comfortably, NAD, non-toxic in appearance, AA&O x 4 Skin: warm, dry, intact, no rashes or lesions HEENT: NC/AT, PERRL, EOMI, anicteric sclera, conjunctiva without injection, external ear normal to inspection and nontender, nares patent, moist mucus membranes, dentition intact, no oropharyngeal lesions, neck supple, trachea midline, no LAD, no thyromegaly, no JVD Heart: +S1/S2, irregularly irregular, bradycardic, 3/6 ERWIN at right 2nd ICS with radiation across precordium Lungs: equal air entry bilaterally, no rales/rhonchi/wheezes Abd: +BS, soft, NT/ND, no masses/organomegaly/ascites Ext: warm, 2+ pulses in UE/LE bilaterally, no clubbing/cyanosis or edema Neuro: nonfocal, patient AA&O x 4, speech intact, no facial droop, moving all extremities on command with equal strength 5/5 Principal Diagnosis complete heart block s/p pacer placement Discharge Exam Constitutional WD/WN, vitals as above Respiratory normal respiratory effort, lungs clear to auscultation Cardiovascular RRR, no murmur, no edema Skin no rashes, warm and dry Psychiatric A+Ox3, euthymic affect Discharge Data Allergies Allergy/AdvReac Type Severity Reaction Status Date / Time ciprofloxacin Allergy Intermediate RASH Verified 12/24/23 20:55 sulfamethoxazole Allergy Intermediate HIVES Verified 12/24/23 20:55 trimethoprim Allergy Intermediate HIVES Verified 12/24/23 20:55 feathers Allergy Mild Sneezing Verified 12/24/23 20:55 amlodipine Allergy Unknown CAN'T Verified 12/24/23 20:55 REMEMBER atorvastatin [From Lipitor] Allergy Unknown CAN'T Verified 12/24/23 20:55 REMEMBER fenofibrate Allergy Unknown CAN'T Verified 12/24/23 20:55 REMEMBER losartan Allergy Unknown CAN'T Verified 12/24/23 20:55 REMEMBER Penicillins Allergy Unknown UNSURE Verified 12/24/23 20:55 Rabbit Allergy Unknown Unknown Verified 12/24/23 20:55 carisoprodol AdvReac Unknown CAN'T Verified 12/24/23 20:55 REMEMBER TOBACCO Allergy Unknown Unknown Uncoded 12/24/23 20:55 Consultations 12/24/23 20:06 ED Decision to Admit Stat 12/24/23 23:00 Consult Cardiology Routine Procedures Performed Operation Date: 12/25/23 12:00 Actual Procedures p Pacer with A/V Leads (Dual) - Shaquille Morris MD Ordered Studies 12/25/23 15:45 EP Lab Images for PACS ONCE Hospital Course (1) Third degree heart block: 73yo female presented with bradycardia, some SOB and palpitations, found to be in complete heart block with HR in the 40's. She did have LUIS FELIPE, possible poor perfusion. -No obvious etiology identified for her heart block. Likely a component of age- related conduction abnormality. -Electrolytes and TSH are within normal limits. Lyme screen Negative. -Echo done. No regional wall motion abnormalities. Mild LVH, EF 60-65%, mild- moderate aortic stenosis. -Cardiology consulted, s/p pacer placement - patient to follow up in cardiology clinic next week (2) Type 2 diabetes mellitus with hyperglycemia, with long-term current use of insulin: HgbA1C 10.9 Consider adjusting antihyperglycemic regimen in outpatient setting (3) LUIS FELIPE (acute kidney injury): Cr 1.48 on admission, relative to baseline of 0.99. Possibly secondary to poor perfusion in setting of CHB and bradycardia. Responsive to gentle fluid resuscitation, Cr 1.15 on morning of discharge, Plan Hypothyroidism - chronic. stable -Continue Synthroid 150mcg po daily Hyperlipidemia - Chronic. Stable -Continue Crestor 40mg po daily Total Time Total Time Spent Total Time Spent (In Minutes): <30 Discharge Plan Discharge Items Patient Disposition: Home - Self-Care Reason For Visit: BRADYCARDIA, COMPLETE HEART BLOCK Discharge Diagnosis: Complete heart block s/p pacer placement Activity: Per Instructions section Lifting Comment: No lifting right arm above the shoulder behind the neck for 6 weeks Bathing: Keep incision dry Bathing Comment: Keep wound dry and Steri-Strips intact until follow-up next week Non-emergency contact: Primary Care Provider and Physical Therapy Technician Call non-emergency contact if: you have any medication questions, your symptoms worsen and your pain is not controlled Follow-up/Referrals: Lorenza Nieves MD [Primary Care Provider] - 12/31/23 10:00 am (PCP FOLLOW UP: P/A MIMA HUERTA: 12/30 @ 10am) Diet: Heart Healthy Addtl Attending Provider Instructions: You were admitted to the hospital with complete heart block, which required placement of a pacemaker. Please refrain from lifting your right arm above the shoulder/behind the neck for 6 weeks. Also, please keep the wound dry and Steri- strips intact for 5-7 days. You will also need to follow up in cardiology clinic next week. A discharge summary will be sent to your primary care physician to ensure continuity of care. Please bring this discharge summary with you to your next office appointment so that your provider can review it at that time. Medications: Your medication list has been reviewed and reconciled upon discharge to ensure accuracy and continuity of care. An updated list of all your medications is included with your hospital discharge paperwork. Please review this list closely and make note of any changes to your medications. No changes were made to your home medications, please continue to take medications as previously directed. Follow up appointments: - Make a follow up appointment with your PCP within the next week. It is very important that you follow up with them shortly after discharge from the hospital. - Keep all of your follow up appointments as already scheduled. If you cannot make an appointment, notify your provider. CONTACT YOUR PRIMARY CARE PROVIDER if you experience any of the following: - Difficulty following your treatment plan - Difficulty taking any of your medications CALL 911 OR GO TO THE EMERGENCY DEPARTMENT if you experience any of the following: - Sudden, severe abdominal pain or nausea/vomiting - Severe chest pain or chest pain that radiates to your jaw or arm - Sudden, severe shortness of breath or difficulty breathing Pending Studies at Discharge: No Stand-Alone Forms: My [facility], Smoking Cessation Medications and DC Order Prescriptions: Continued multivitamin tablet 1 tab PO DAILY vitamin B complex tablet 1 tab PO HS cholecalciferol (vitamin D3) 1,000 unit capsule 1,000 units PO DAILY chromium picolinate 400 mcg tablet 500 mcg PO DAILY cinnamon bark [Cinnamon] 500 mg capsule 500 mg PO DAILY magnesium oxide 400 mg capsule 400 mg PO DAILY (DME) insulin syringe-needle U-100 0.5 mL 30 gauge x 1/2" syringe See Rx Instructions .Route Qty: 300 3RF Rx Instructions: Use to inject insulin 2-4 times daily rosuvastatin 40 mg tablet 40 mg PO DAILY Qty: 90 3RF albuterol sulfate 90 mcg/actuation HFA aerosol inhaler 2 puff inhalation Q4H PRN (Reason: shortness of breath or wheezing) Qty: 8.5 3RF levothyroxine 150 mcg tablet 150 mcg PO DAILY Qty: 90 3RF metformin 500 mg tablet extended release 24 hr 500 mg PO BID Qty: 60 3RF spironolactone 25 mg tablet 25 mg PO DAILY Qty: 90 3RF hydrochlorothiazide 12.5 mg capsule 12.5 mg PO QAM (DME) OneTouch Ultra Test Strip See Rx Instructions .Route Qty: 300 3RF Rx Instructions: testing 3 times daily fluconazole 100 mg Tablet 0 mg PO DIRECTED PRN (Reason: NEEDED PER PT) omega-3 fatty acids 1,000 mg Capsule 1,000 mg PO DAILY acetaminophen [Tylenol Extra Strength] 500 mg Tablet 500 mg PO Q6H PRN (Reason: PAIN/FEVER) ascorbic acid (vitamin C) [Vitamin C] 500 mg Tablet 500 mg PO DAILY diphenhydramine HCl [Benadryl] 25 mg Capsule 25 mg PO DIRECTED PRN (Reason: Congestion) ibuprofen 200 mg Tablet 400 mg PO Q6H PRN (Reason: PAIN/FEVER) guaifenesin [Mucinex] 600 mg Tablet Extended Release 12hr 600 mg PO Q12H PRN (Reason: Congestion) turmeric 400 mg Capsule 400 mg PO DAILY Glucosamine Chondroitin 550-30-1 mg Capsule 1 cap PO DAILY insulin glargine [Lantus U-100 Insulin] 100 unit/mL solution 95 unit SQ QAM diltiazem HCl 240 mg capsule,extended release 24hr 240 mg PO HS aspirin 81 mg tablet,delayed release (DR/EC) 81 mg PO HS orphenadrine citrate 100 mg tablet extended release 100 mg PO BID PRN (Reason: NEEDED) potassium chloride 20 mEq tablet extended release 20 meq PO HS Discharge Orders: Discharge Order (Routine); Ordered 12/26/23 Ordered By: Kaushik Soliman/Other Patient Handouts: Living with a Pacemaker, Pacemaker Implant Dc, Heart Block 3rd Degree Admission Data Admit Date/Time: 12/24/23 20:37 Attending Provider: Dimitris Salvador Admit Provider: Mima Li Primary Care Provider: Lorenza Nieves Other Providers: Mima Li; Agutsin Gallardo Other Interventions: Discharge Summary Assessment (RN) Last Done: 12/26/23 13:57 Supervising Physician Co-Signing Physician Notes I personally examined the patient and verified all wall points of history and exam, discussed case, and agree with decision making with Dr Trujillo No new problems or complaints. Feels good to go home. Chest x-ray with no pneumothorax. Vitals noted, in general she is awake and alert pleasant no distress. HEENT normocephalic atraumatic mucous membranes moist. Breathing unlabored no accessory muscle use good effort. Skin shows no rashes no pallor or icterus. Complete heart blockdoes not appear to be [place]yme or [place] relatedlikely just conduction system disease. Now stable status post pacer. Safe/stable for home. Outpatient follow-up. Otherwise as above. Cardiorenal syndrome from poor forward flow from bradycardia has improved. Resident Activity Tracking Resident Involvement: Resident Care Provided Care Provided: Adult Hospital Medicine
--- NOTE | 2023-12-26 13:08 | Electrocardiogram Report ---
Test Reason : Blood Pressure : / mmHG Vent. Rate : 089 BPM Atrial Rate : 089 BPM P-R Int : 192 ms QRS Dur : 150 ms QT Int : 408 ms P-R-T Axes : 063 -35 024 degrees QTc Int : 496 ms Atrial-sensed ventricular-paced rhythm Abnormal ECG When compared with ECG of 24-DEC-2023 18:50, Electronic ventricular pacemaker has replaced Sinus rhythm Vent. rate has increased BY 43 BPM Confirmed by Agustin Gallardo ([id number]) on 12/26/2023 1:08:00 PM Referred By: REFERRED SELF Confirmed By:Agustin Gallardo
--- NOTE | 2023-12-26 13:26 | XRay Report ---
TWO VIEW CHEST CLINICAL HISTORY: Pacemaker implantation. FINDINGS: AP upright and lateral chest radiographs are compared to study dated 12/24/2023. A 2-lead ca rdiac pacemaker has been implanted and partially obscures the right mid chest. Leads project over the right atrial appendage and right ventricle. The heart is enlarged noting atherosclerotic calcificati on of the thoracic aorta. There is prominence of the pulmonary vasculature. There is mild bibasilar a telectasis. No airspace consolidation or large pleural effusion is identified. There is no pneumothor ax. The skeletal structures are osteopenic. The bony thorax appears intact. IMPRESSION: 1. A 2-lead cardiac pacemaker has been implanted as above. No pneumothorax is identified post procedu re. 2. Cardiomegaly with mild pulmonary vascular congestion. ACT 112: Negative or not required by law. Electronically signed by: Hugo Pacheco M.D. 12/26/2023 1:25 PM
--- NOTE | 2023-12-26 18:17 | Billing Data ---
Date of Service December 26, 2023 Coding Level of Care Code 39681 IN/OBS DISCH 30 MIN/LESS
== END 2023-12-26 15:45 | disposition home or self-care (01) | DRG 243 ==
LOC: ED 18:18 → SUATTDRO 20:37 → 2N 20:37 → 1E 22:32